=== PATIENT | male | born 1945 | race Caucasian/White ===

== ENCOUNTER → 2024-03-04 10:00 | Outpatient (REF) | payer MEDICARE, SELFPAY ==
[2024-03-04 11:32] LABS: Urine Albumin 3+ (Neg - Trace); Urine Bilirubin Negative (Negative); Urine Character Very Cloudy (Clear); Urine Color Yellow; Urine Glucose Negative (Negative); Urine Ketone Negative (Negative); Urine Leukocyte 2+ (Negative); Urine Nitrite Negative (Negative); Urine Occult Blood 3+ (Negative); Urine Urobilinogen Negative (Neg - 1+)
[2024-03-04 11:56] LABS: Urine White Cell >100 /HPF (0-5)
[2024-03-04 11:57] LABS: Urine Squamous Cell 0-2 /LPF (Few)
== END ==
LOC: HWLAB 10:00
PROVIDERS: ATTENDING PHYSICIAN Urology; FAMILY PHYSICIAN Family Medicine
DX: N39.0 Urinary tract infection, site not specified (principal)
CPT/HCPCS: 81003; 81015; 87077; 87086

== ENCOUNTER → 2024-04-02 07:58 | Outpatient (REF) | payer MEDICARE, SELFPAY ==
[2024-04-02 09:49] LABS: % Basophils 1.2 % (0-2); % Immature Granulocytes 0.3 % (0-0.5); % Lymphocytes 21.3 % (20.5-51.1); % Monocytes 10.8 % (1.7-9.3); % Neutrophils 59.4 % (42.2-75.2); Absolute Eosinophils 0.2 10^3/uL (0-0.7); Absolute Lymphocytes 0.7 10^3/uL (1.2-3.4); Absolute Monocytes 0.4 10^3/uL (0.1-0.6); Hematocrit 33.1 % (39.0-52.0); Hemoglobin 11.8 g/dL (13.0-18.0); Mean Corp Hgb Conc. 35.6 g/dL (33.0-37.0); Mean Corpuscular Hgb 33.6 pg (27.0-31.0); Mean Corpuscular Volume 94.3 fL (80.0-94.0); Mean Platelet Volume 9.7 fL (7.4-10.4); Nucleated Red Blood Cells % 0 % (-); Platelet Count 105 10^3/uL (130-400); Red Blood Cell Count 3.51 10^6/uL (4.70-6.10); Red Cell Dist. Width 13.7 % (11.5-14.5); White Blood Cell Count 3.4 10^3/uL (4.8-10.8)
[2024-04-02 11:28] LABS: ALT (SGPT) 19 U/L (0-50); AST (SGOT) 31 U/L (17-59); Albumin 4.2 g/dl (3.5-5.0); Alkaline Phosphatase 50 U/L (38-126); Blood Urea Nitrogen 23 mg/dl (9-20); Calcium 9.5 mg/dl (8.4-10.2); Carbon Dioxide 26 mmol/L (22-30); Chloride 106 mmol/L (98-107); Glucose 97 mg/dl (70-99); HDL Cholesterol 53 mg/dl; LDL Cholesterol, Calculated 66 mg/dl; Potassium 3.9 mmol/L (3.5-5.1); Sodium 139 mmol/L (135-145); Total Bilirubin 1.1 mg/dl (0.2-1.3); Total Cholesterol 135 mg/dl (50-199); Total Protein 6.5 g/dl (6.3-8.2); Triglyceride 80 mg/dl (10-149); Very Low Density Lipoprotein 16 mg/dl (0-30); eGFR > 60.00
== END ==
LOC: HWLAB 07:58
PROVIDERS: ATTENDING PHYSICIAN Family Medicine
DX: I10 Essential (primary) hypertension (principal); R06.83 Snoring; E78.5 Hyperlipidemia, unspecified; I47.10 Supraventricular tachycardia, unspecified; I35.1 Nonrheumatic aortic (valve) insufficiency; I77.810 Thoracic aortic ectasia; R79.89 Other specified abnormal findings of blood chemistry
CPT/HCPCS: 36415; 80053; 80061; 85025

== ENCOUNTER → 2024-04-22 09:44 | Outpatient (REF) | payer MEDICARE, SELFPAY | LOC: HWRAD 09:44 | PROVIDERS: ATTENDING PHYSICIAN Physician Assistant; FAMILY PHYSICIAN Family Medicine | DX: R33.9 Retention of urine, unspecified (principal); N40.1 Benign prostatic hyperplasia with lower urinary tract symptoms | CPT/HCPCS: 76775 ==

== ENCOUNTER → 2024-08-04 08:08 | Outpatient (REF) | payer MEDICARE, SELFPAY ==
[2024-08-04 09:40] LABS: % Basophils 0.9 % (0-2); % Eosinophils 3.4 % (0-6); % Immature Granulocytes 0.9 % (0-0.5); % Lymphocytes 16.2 % (20.5-51.1); % Monocytes 12.5 % (1.7-9.3); % Neutrophils 66.1 % (42.2-75.2); Absolute Eosinophils 0.1 10^3/uL (0-0.7); Absolute Lymphocytes 0.6 10^3/uL (1.2-3.4); Absolute Monocytes 0.4 10^3/uL (0.1-0.6); Absolute Neutrophils 2.3 10^3/uL (1.4-6.5); Hematocrit 34.8 % (39.0-52.0); Hemoglobin 12.9 g/dL (13.0-18.0); Mean Corp Hgb Conc. 37.1 g/dL (33.0-37.0); Mean Corpuscular Volume 91.8 fL (80.0-94.0); Mean Platelet Volume 9.3 fL (7.4-10.4); Nucleated Red Blood Cells % 0 % (-); Platelet Count 113 10^3/uL (130-400); Red Blood Cell Count 3.79 10^6/uL (4.70-6.10); White Blood Cell Count 3.5 10^3/uL (4.8-10.8)
[2024-08-04 10:02] LABS: ALT (SGPT) 22 U/L (0-50); AST (SGOT) 36 U/L (17-59); Albumin 4.6 g/dl (3.5-5.0); Alkaline Phosphatase 44 U/L (38-126); Blood Urea Nitrogen 25 mg/dl (9-20); Calcium 9.5 mg/dl (8.4-10.2); Carbon Dioxide 25 mmol/L (22-30); Chloride 104 mmol/L (98-107); Glucose 102 mg/dl (70-99); HDL Cholesterol 52 mg/dl; LDL Cholesterol, Calculated 81 mg/dl; Potassium 3.9 mmol/L (3.5-5.1); Sodium 141 mmol/L (135-145); Total Bilirubin 1.7 mg/dl (0.2-1.3); Total Cholesterol 160 mg/dl (50-199); Total Protein 7.1 g/dl (6.3-8.2); Triglyceride 139 mg/dl (10-149); Very Low Density Lipoprotein 27 mg/dl (0-30); eGFR 51.13
[2024-08-04 10:33] LABS: PSA, Total - Screen 0.67 ng/ml (0.0-4.0); TSH 0.06 uIU/ml (0.47-4.68)
== END ==
LOC: HWLAB 08:08
PROVIDERS: ATTENDING PHYSICIAN Family Medicine
DX: I10 Essential (primary) hypertension (principal); E78.00 Pure hypercholesterolemia, unspecified; R35.1 Nocturia; Z12.5 Encounter for screening for malignant neoplasm of prostate
CPT/HCPCS: 36415; 80053; 80061; 84443; 85025; G0103

== ENCOUNTER 2024-08-11 00:30 | Inpatient (IN) | payer MEDICARE, SELFPAY ==
[2024-08-10 23:06] LABS: Glucose - Point of Care 111 mg/dl (70-99)
[2024-08-10 23:07] VITALS: BP 155/85
--- NOTE | 2024-08-10 23:08 | ED.CVA ---
History of Present Illness
General
Chief Complaint: CVA/TIA Symptoms
Source: patient
Exam Limitations: none
Time Seen by Provider: 08/10/24 23:01
Nursing documentation reviewed up to this point in time: agreed with
Onset of Stroke Symptoms
Onset of symptoms known: Yes
Date of onset of symptoms: 08/10/24
Time of onset of symptoms: 22:15
History of Present Illness
History of Present Illness:
This is a 79-year-old gentleman who has history of hypertension, hyperlipidemia, history of central retinal vein occlusion of the left eye 2018 with chronic vision loss of left eye that has been stable and unchanged since then.
While getting ready for bed tonight around 20-15 he suddenly noticed weakness of his left arm as well as mild weakness of his left leg. No other associated symptoms, no fall, no dizziness, no headache. No history of similar episodes in the past.
Symptoms have been persistent. He was able to ambulate to the car and family has driven him to the hospital.
He takes no anticoagulants save for low-dose aspirin.
Prior to tonight he has been feeling well.
Significant family history of CVAs in his father, grandfather, uncles.
Patient reports remote history of dizziness/vertigo in the past.
He also has history of mild thrombocytopenia�platelet count generally runs from normal to low of 100,000.
No history of bleeding disorders. No recent falls.
Past History
Past History
ED Past Medical History: HTN (Borderline), Hypercholesterolemia and Other (Mild thrombocytopenia-no history of bleeding disorders)
ED Past Surgical History: Cholecystectomy, Orthopedic and Urological
Social History
Tobacco: Non-smoker
Alcohol: Occasional
Personal:
Living: with family
Employment: Retired
Family History
Family History: Other (CVA father, paternal grandfather)
Phy Exam
Physical Exam
Physical Exam:
GENERAL: 79-year-old gentleman appears his stated age, bright and alert, pleasant, easily communicative, appears in no acute distress.
EYE: pupils equal and reactive. Extraocular muscles intact, moderate vision loss left eye which patient reports is chronic and unchanged. He preferentially keeps his left eye closed�habitually. Anicteric. Eyes otherwise open equally. There is
no facial droop/no facial asymmetry.
NECK: Supple, nontender, no meningismus, no significant adenopathy.
ENT: posterior pharynx is clear, oral mucosa is moist. Tongue is midline. TM clear b/l, nares patent.
CARDIAC: Regular rate and rhythm. no murmur.
LUNGS: Clear breath sounds bilaterally, no acute respiratory distress, no wheezes/rales/rhonchi
ABDOMEN: Soft, nondistended, without focal tenderness, no r/g, no cvat. normoactive BS.
NEUROLOGICAL: Alert and oriented x3, very minimal drift of left upper extremity with mild dysmetria of left upper extremity, very minimal sensory deficit left upper arm. Initial NIH stroke scale of 4.
SKIN: Warm and dry, normal color, skin intact. No rash.
MUSCULOSKELETAL: No C/C/E. peripheral pulses are full and equal b/l. No palpable tenderness.
PSYCH: Normal and appropriate interaction.
Scores
NIH Stroke Score
Level of Consciousness: 0 - Alert
LOC Questions: 0-Answers both correctly
LOC Commands: 0-Performs both correctly
Best Horizontal Gaze: 0-Normal
Visual Knight: 1=Partial hemianopia
Facial Palsy: 0=Normal, symmetrical
Motor - Right Arm: 0=No drift 10 seconds
Motor - Left Arm: 1=Drift < 10 seconds
Motor - Right Le-No drift 5 seconds
Motor - Left Le-No drift 5 seconds
Limb Ataxia: 1-Present in one limb
Sensation: 1-Mild loss
Best Language: 0-No aphasia
Dysarthria: 0-Normal
Extinction and Inattention: 0-No abnormality
Total Score:: 4
Thrombolytic Contraindication
Inclusion and Exclusion criteria reviewed: Yes
IAT Contraindications: NIHSS < 6
Stroke Thrombolytic & IAT <6 hours
IAT <6 Hr Exclusion Criteria: NIHSS <6
Course
Orders/Labs/Results
Orders:
Orders
08/10/24 23:04
EKG [Electrocardiogram (*1)] Urgent
Reason for Study: Fatigue / Weakness
EKG- Treatment ONCE
08/10/24 23:05
Electrocardiogram (*1) Urgent
Reason for Study: Other
Other Reason for Exam: Possible Stroke
Bedside Glucose- Treatment ONCE
Cardiac Monitoring- Treatment ONCE
EKG- Treatment ONCE
IV Insert/Care/Rem.- Treatment PRN
Vital Signs As Directed
Frequency: Other
Weight As Directed
Frequency: Once
Comment: ZERO STRETCHER SCALE FOR ACCURATE WEIGHT
O2 Therapy [RESP] Urgent
Titrate/Wean O2 to maintain O2 sat greater than (%): 93
Special Instructions: MAINTAIN CONTINUOUS O2 SATS > OR = 93%
08/10/24 23:07
CT HEAD STROKE ALERT W/o Cont Urgent
Comment: ok to change per DR Meyer
Reason For Exam: L sided weakness
08/10/24 23:16
Complete Blood Count/With Diff Urgent
Comprehensive Metabolic Panel Urgent
PTT Urgent
Prothrombin Time Urgent
Troponin I Urgent
08/10/24 23:34
Tenecteplase [Tnkase] 21 mg Syringe [Syringe Non-Pump] 0 ml IV NOW
Provider explained risk/benefits to patient &/or caregiver?: Yes
Blood pressure: 155/85
Abnormal Lab Results
08/10/24 08/10/24
23:04 23:16
RBC 3.75 L 10^6/uL
(4.70-6.10)
Hgb 12.4 L g/dL
(13.0-18.0)
Hct 35.1 L %
(39.0-52.0)
MCH 33.1 H pg
(27.0-31.0)
Absolute Lymphs (auto) 1.1 L 10^3/uL
(1.2-3.4)
Lymphocytes % 19.3 L %
(20.5-51.1)
Monocytes % 9.7 H %
(1.7-9.3)
PT 14.9 H Sec
(11.4-14.6)
BUN 29 H mg/dl
(9-20)
Creatinine 2.0 H mg/dL
(0.7-1.3)
Glucose 120 H mg/dl
(70-99)
POC Glucose 111 H mg/dl
(70-99)
08/10/24 23:16
08/10/24 23:16
Vital Signs
Initial and Last Documented VS:
Initial Vital Signs
Pulse Pulse Ox
62 97
08/10/24 23:06 08/10/24 23:06
Last Documented Vital Signs
Temp Pulse Resp BP Pulse Ox
98.1 F 61 16 143/71 98
08/10/24 23:20 08/11/24 00:00 08/11/24 00:00 08/11/24 00:00 08/11/24 00:00
MDM/Problems Addressed
Differential Diagnosis Includes:
Concern for acute stroke. Onset of symptoms from 22:15. Initial NIH stroke scale of 4.
Patient is potential candidate for TNK/thrombolytics. At this point not candidate for IAT due to to NIH stroke scale less than 6.
Stroke alert initiated at time of initial bedside evaluation.
Case discussed with neurology.
Awaiting stat CT of the head results.
Chronic conditions affecting care: HTN and Other (Hyperlipidemia; Thrombocytopenia)
*Radiology
Radiology exam reviewed: radiology read reviewed
*Pulse Oximetry
Patient hypoxic: no
*EKG
Interpreted by ED Provider?: Yes
Interpretation: normal
Comparison EKG: no comparison EKG present
Rate: normal
Rhythm: sinus
[place]: normal axis
Interval: normal interval
QRS Pattern: normal QRS
Ischemia: no ischemia
*Towel Weaver Interpretation
Rate: normal
Interpretation: normal
Rhythm: sinus
*Critical Care Note
Total Time (30-74mins, 75-104mins- exclusive of procedures): 30
comment:
Critical care statement: A total of 30 minutes of critical care time was provided for this patient. This includes management of unstable vital signs, evaluation of the patient at bedside, reviewing the patient's pertinent medical records, discussion
with consultants, review of old EKGs and review of pertinent medical records. This time with separate from time utilized to perform the aforementioned documented procedures
Update Note
Update Note:
08/10/2024 2334 PM
CAT scan shows no acute bleeding. There are a few tiny lacunar infarct on the right side, age-indeterminate. There is also note of moderate atrophy, concern for old subdural hematoma/hygromas but overall very similar in appearance from previous
MRI of the brain 2012 which is more consistent with moderate atrophy.
Case discussed with neurology. Okay for TNK.
Benefits and risk discussed with patient, including risk of intracranial bleeding. He is agreeable with IV thrombolytics.
ED Attending Note
-
Portions of this chart may have been created with voice recognition software.� Occasional wrong word or��sound alike� substitutions may have occurred due to the inherent limitations of voice recognition software.
Discharge Plan
Departure
Patient Disposition: Admit
Date of Disposition: 08/11/24
Time of Disposition: 00:13
Admit to: ICU
Admit to doctor: Daly
Presentation/result/management discussed w/ accepting MD/DO: Hospitalist
Discharge Problem:
acute ischemic CVA
Prescriptions:
No Action
atorvastatin 10 MG tablet
5 mg PO QPM
fluticasone propionate 1 SPRAY spray,suspension
1 spray intranasal DAILYPRN PRN (Reason: ALLERGIES)
latanoprost 0.005 % Drops
1 drp BOTH EYES HS
aspirin 81 mg Tablet,Delayed Release (Dr/Ec)
81 mg PO QPM
ciclopirox 8 % Solution
1 applic TOPICAL HS
lisinopril 5 mg Tablet
5 mg PO DAILY
Align 4 mg Capsule
4 mg PO DAILY
cholecalciferol (vitamin D3) [Vitamin D3] 50 mcg (2,000 unit) Capsule
50 mcg PO DAILY
silodosin 4 mg Capsule
4 mg PO QPM
coQ10 (ubiquinol) 100 mg Capsule
100 mg PO DAILY
[id number]-algal oil [Foltanx RF] 3 mg-35 mg-2 mg -90.314 mg Capsule
1 cap PO BID
sildenafil [Viagra] 100 mg Tablet
100 mg PO DAILY PRN (Reason: ed)
naproxen sodium [Aleve] 220 mg Tablet
220 mg PO [id number] PRN (Reason: mild pain)
diltiazem HCl 180 mg capsule,extended release 24hr
180 mg PO DAILY
Referrals:
Abdelrahman Burroughs DO [Family Provider] -
Interventions
Interventions:
*General Assessment Last Done: 08/10/24 23:27
*ED COVID-19 Vaccine History Last Done: 08/10/24 23:27
ED- Pulmonary Assessment Last Done: 08/10/24 23:28
ED- Neurological Assessment Last Done: 08/10/24 23:28
ED- Cardiac Assessment Last Done: 08/10/24 23:28
Discharge Date and Time
Print Language: POLISH
[2024-08-10 23:20] VITALS: BP 155/85; BMI 27.0
[2024-08-10 23:31] LABS: % Basophils 0.7 % (0-2); % Eosinophils 2.8 % (0-6); % Immature Granulocytes 0.5 % (0-0.5); % Lymphocytes 19.3 % (20.5-51.1); % Monocytes 9.7 % (1.7-9.3); Absolute Eosinophils 0.2 10^3/uL (0-0.7); Absolute Lymphocytes 1.1 10^3/uL (1.2-3.4); Absolute Monocytes 0.6 10^3/uL (0.1-0.6); Absolute Neutrophils 3.9 10^3/uL (1.4-6.5); Hematocrit 35.1 % (39.0-52.0); Hemoglobin 12.4 g/dL (13.0-18.0); Mean Corp Hgb Conc. 35.3 g/dL (33.0-37.0); Mean Corpuscular Hgb 33.1 pg (27.0-31.0); Mean Corpuscular Volume 93.6 fL (80.0-94.0); Mean Platelet Volume 9.5 fL (7.4-10.4); Nucleated Red Blood Cells % 0 % (-); Platelet Count 152 10^3/uL (130-400); Red Blood Cell Count 3.75 10^6/uL (4.70-6.10); Red Cell Dist. Width 13.2 % (11.5-14.5); White Blood Cell Count 5.8 10^3/uL (4.8-10.8)
[2024-08-10 23:32] LABS: INR 1.14; PT 14.9 Sec (11.4-14.6)
[2024-08-10 23:33] LABS: APTT 32.8 Sec (23.4-35.0)
[2024-08-10 23:37] LABS: ALT (SGPT) 21 U/L (0-50); AST (SGOT) 32 U/L (17-59); Albumin 4.6 g/dl (3.5-5.0); Alkaline Phosphatase 41 U/L (38-126); Blood Urea Nitrogen 29 mg/dl (9-20); Calcium 9.4 mg/dl (8.4-10.2); Carbon Dioxide 23 mmol/L (22-30); Chloride 107 mmol/L (98-107); Estimated Creatinine Clearance 31 ml/min; Glucose 120 mg/dl (70-99); Potassium 4.1 mmol/L (3.5-5.1); Sodium 142 mmol/L (135-145); eGFR 33.32
[2024-08-10] MEDS: TNKASE 4.2 MG IV (23:43)
[2024-08-10 23:45] VITALS: BP 141/74
[2024-08-10 23:46] VITALS: BP 141/74
[2024-08-11] VITALS (73 sets, daily range): BP systolic 119–169; BP diastolic 58–106; BMI 26.2
[2024-08-11] LABS: Troponin I < 0.012 ng/ml
--- NOTE | 2024-08-11 00:47 | HPS.HSE ---
Family Physician
-
Family Physician: Abdelrahman Burroughs
Chief Complaint
-
Left-sided weakness
History of Present Illness
This is a 79-year-old was past medical history significant for hypertension, paroxysmal supraventricular tachycardia, BPH status post surgery, prior history of a left central retinal vein occlusion who presents to the emergency department with acute
episode of left-sided weakness.
Patient reports being in usual state of health up until trying to go to bed at around 10:30 PM. He reported that his left hand felt heavy and was not able to grasp objects as he normally would. When he walks he also noticed some weakness in his
left leg. Family denies any facial asymmetry. They denied any slurred speech. He had no confusion. He denies specifically numbness or tingling. He had no recent palpitations or lightheadedness or dizziness. Patient denies prior TIA or CVA. He
has no known coronary artery disease. Patient reports that his symptoms are still present on arrival in the emergency department.
In the emergency department patient was afebrile with a temp of 90.1, blood pressure 142/71 pulse 61 satting 98% on room air. CT of the head was negative. ECG is normal sinus rhythm rate 64 troponin negative. CBC was unremarkable. Chemistries
notable for a creatinine of 2.0 which is elevated from 1.5 previously.
Stroke alert called, neurology aware and patient received TNK.
Medical History
Past Medical History
Past Medical History: Reports HTN and Hypercholesterolemia
Additional Past Medical History:
BPH s/p surgery
Past Surgical History: Reports Urological
Social History
Tobacco: Non-smoker
Alcohol: Occasional
Drug: None
Personal:
Living: With Family
Employment: Retired
Family History
Family History: Not pertinent
Allergies / Home Medications
Allergies reflects when Allergies were last updated in [facility].
Home Medications with original date entered in [facility]
Allergy/Medication List:
Allergies
Allergy/AdvReac Type Severity Reaction Status Date / Time
Penicillins Allergy Hives Verified 09/21/23 15:09
Home Medications
atorvastatin 10 mg tablet 5 mg PO QPM 08/23/20
fluticasone propionate 50 mcg/actuation nasal spray,suspension 1 spray intranasal DAILYPRN PRN ALLERGIES 08/23/20
Bifidobacterium infantis 4 mg capsule (Align) 4 mg PO DAILY 09/21/23
aspirin 81 mg tablet,delayed release 81 mg PO QPM 09/21/23
cholecalciferol (vitamin D3) 50 mcg (2,000 unit) capsule (Vitamin D3) 50 mcg PO DAILY 09/21/23
ciclopirox 8 % topical solution 1 applic topical HS tornails 09/21/23
coQ10 (ubiquinol) 100 mg capsule 100 mg PO DAILY 09/21/23
latanoprost 0.005 % eye drops 1 drp BOTH EYES HS 09/21/23
levomefolate Ca 3 mg-B6 35 mg-meB12 2 mg-algal oil 90.314 mg capsule (Foltanx RF) 1 cap PO BID 09/21/23
lisinopril 5 mg tablet 5 mg PO DAILY 09/21/23
naproxen sodium 220 mg tablet (Aleve) 220 mg PO [id number] PRN mild pain 09/21/23
sildenafil 100 mg tablet (Viagra) 100 mg PO DAILY PRN ed 09/21/23
silodosin 4 mg capsule 4 mg PO QPM 09/21/23
diltiazem HCl 180 mg capsule,extended release 24 hr 180 mg PO DAILY 08/10/24
Review of Systems
-
History Source: Patient
Constitutional: Reports No Symptoms
EENT: Reports No Symptoms
Respiratory: Reports No Symptoms
Cardiac: Reports No Symptoms
Abdomen/GI: Reports No Symptoms
: Reports No Symptoms
Musculoskeletal: Reports No Symptoms
Skin: Reports No Symptoms
Neurological: Reports No Symptoms
Endocrine: Reports No Symptoms
Hematologic/Lymphatic: Reports No Symptoms
Psych: Reports No Symptoms
Physical Exam
Vital Signs
Vital Signs
Temp Pulse Resp BP Pulse Ox
98.1 F 64 16 155/79 98
08/10/24 23:20 08/11/24 00:30 08/11/24 00:30 08/11/24 00:30 08/11/24 00:30
Physical Exam
General: Well Developed, Well Nourished, No Apparent Distress and Comfortable
HEENT: NormoCephalic, Anicteric, Moist mucous membranes and Atraumatic
Respiratory: Clear
Cardiac: S1/S2 and Regular Rhythm
GI: Soft, Non Tender, Non Distended and Normal Bowel Sounds
Genito-urinary: Deferred by me
Musculoskeletal: No Clubbing, No Cyanosis and No Edema
Skin: Warm
Neuro: AO x 3, Cranial Nerves Intact, No Sensory Deficits, DTR's Intact & Symmetrical and Other (strenght is 4.5 / 5 on left upper and lower extremity)
Hematologic/Lymphatic: No Lymphadenopathy
Psych: Calm
Laboratory Results
-
08/10/24 23:16
08/10/24 23:16
Laboratory Results
PT 14.9 Sec (11.4-14.6) H 08/10/24 23:16
INR 1.14 08/10/24 23:16
APTT 32.8 Sec (23.4-35.0) 08/10/24 23:16
Total Bilirubin 1.0 mg/dl (0.2-1.3) 08/10/24 23:16
AST 32 U/L (17-59) 08/10/24 23:16
ALT 21 U/L (0-50) 08/10/24 23:16
Alkaline Phosphatase 41 U/L (38-126) 08/10/24 23:16
Troponin I < 0.012 ng/ml 08/10/24 23:16
Data Reviewed
-
CT Scan: Report Reviewed by me
Lab Data: Labs Reviewed by me
Old Records: Reviewed
Impression/Plan
-
IMPRESSION:
79-year-old male with past medical history of hypertension, BPH, supraventricular tachycardia without atrial fibrillation or flutter who presents to the emergency department with left-sided weakness consistent with a right MCA syndrome.
Hemodynamically stable and in no acute distress. Currently NIHSS was 4 with 4 out of 5 weakness in the upper and lower extremities. Sensation is intact. Speech is normal. No facial asymmetry. Risk factors are age, hypertension and possibly
history of these SVT. Status post TNK.
PLAN:
CVA s/p TNK
- admit to ICU
- npo pending swallow eval
- holding asa and AC
- hold bp meds, BP protocol with prn labetolol
- neurochecks q 4
- echo, mri/mra head and neck in am
- cardiovascualar testing, tsh, esr
- neurology consult
HTN
- holding lisinopril for now
SVT
- holding cardizem, telemetry monitoring
Code status - Full Code
--- NOTE | 2024-08-11 01:43 | PTCARENOTE ---
Pt arrived from ED via stretcher, significant other at bedside. Bedside NIH completed = 2, LUE ataxia and weakness. L eye with prior visual changes, per pt it is unchanged. R forearm PIV intact/patent, small amount of bleeding at insertion site.
[2024-08-11 04:37] LABS: Hematocrit 32.1 % (39.0-52.0); Hemoglobin 11.2 g/dL (13.0-18.0); Mean Corp Hgb Conc. 34.9 g/dL (33.0-37.0); Mean Corpuscular Hgb 32.7 pg (27.0-31.0); Mean Corpuscular Volume 93.6 fL (80.0-94.0); Mean Platelet Volume 9.5 fL (7.4-10.4); Platelet Count 134 10^3/uL (130-400); Red Blood Cell Count 3.43 10^6/uL (4.70-6.10); Red Cell Dist. Width 13.1 % (11.5-14.5); White Blood Cell Count 5.1 10^3/uL (4.8-10.8)
[2024-08-11 04:39] LABS: INR 1.14; PT 14.9 Sec (11.4-14.6)
[2024-08-11 04:40] LABS: APTT 33.7 Sec (23.4-35.0)
[2024-08-11 04:43] LABS: Erythrocyte Sed Rate 16 mm/hour (0-20); VerifyNow Aspirin 599 ARU
--- NOTE | 2024-08-11 04:59 | PTCARENOTE ---
Pt now with NIH = 1. Slight LUE weakness, ataxia improved. remains at bedside. AM labs collected and pending. Safe environment maintained, call rosa within reach.
[2024-08-11 05:02] LABS: Blood Urea Nitrogen 31 mg/dl (9-20); Calcium 8.9 mg/dl (8.4-10.2); Carbon Dioxide 23 mmol/L (22-30); Chloride 109 mmol/L (98-107); Estimated Creatinine Clearance 36 ml/min; Glucose 112 mg/dl (70-99); HDL Cholesterol 45 mg/dl; LDL Cholesterol, Calculated 52 mg/dl; Potassium 3.9 mmol/L (3.5-5.1); Sodium 142 mmol/L (135-145); Total Cholesterol 130 mg/dl (50-199); Triglyceride 166 mg/dl (10-149); Very Low Density Lipoprotein 33 mg/dl (0-30)
--- NOTE | 2024-08-11 06:55 | PTCARENOTE ---
Pt unable to void, bladder scan at approx 03:00 = 253ml, pt denied urge to void however attempted unsuccessfully in urinal. Approx 06:15, pt expressed need to void, bladder scan = 765ml. Pt attempted to void in urinal, again unsuccessful. Awaiting
order for straight cath.
--- NOTE | 2024-08-11 07:07 | CON.INTV ---
Consultation
Consultation Request
Date/Time Consultation Requested: 08/11/24
Date/Time Consultation Performed: 08/11/24
Performing Provider: Sandra
Reason for Consultation: CVA
Medical History
-
History of Present Illness:
Patient is a 79-year-old M with history of hypertension, paroxysmal supraventricular tachycardia, BPH status post surgery, presenting to ER for acute onset left-sided weakness. Patient reports being in usual state of health up until trying to go
to bed at around 10:30 PM, then noted LUE heaviness and inability to use hand/grasp. He had also noticed LLE weakness, but otherwise denies slurred speech, confusion, HAs.
In the emergency department patient was afebrile with a temp of 90.1, blood pressure 142/71 pulse 61 satting 98% on room air. CT of the head was negative. ECG is normal sinus rhythm rate 64 troponin negative. CBC was unremarkable. Chemistries
notable for a creatinine of 2.0 which is elevated from 1.5 previously. NIH scale noted as 4. Stroke alert called, patient received TNK. Admitted to ICU post treatment.
Past Medical History
Past Medical History: Other (see list below)
Social History
Tobacco: Non-smoker
Alcohol: None
Drug: None
Family History
Family History: Reviewed & Not Pertinent
Allergies / Home Medications
Allergies
Allergy/AdvReac Type Severity Reaction Status Date / Time
Penicillins Allergy Hives Verified 09/21/23 15:09
Home Medications
�Medication �Instructions �Recorded �Confirmed �Last Taken �Type
atorvastatin 10 mg tablet 5 mg PO QPM 08/23/20 08/10/24 08/10/24 History
fluticasone propionate 50 1 spray intranasal DAILYPRN PRN 08/23/20 08/10/24 09/21/23 History
mcg/actuation nasal ALLERGIES
spray,suspension
Bifidobacterium infantis 4 mg 4 mg PO DAILY 09/21/23 08/10/24 08/10/24 History
capsule (Align)
aspirin 81 mg tablet,delayed 81 mg PO QPM 09/21/23 08/10/24 08/10/24 History
release
cholecalciferol (vitamin D3) 50 50 mcg PO DAILY 09/21/23 08/10/24 08/10/24 History
mcg (2,000 unit) capsule (Vitamin
D3)
ciclopirox 8 % topical solution 1 applic topical HS tornails 09/21/23 08/10/24 09/20/23 History
coQ10 (ubiquinol) 100 mg capsule 100 mg PO DAILY 09/21/23 08/10/24 08/10/24 History
latanoprost 0.005 % eye drops 1 drp BOTH EYES HS 09/21/23 08/10/24 08/10/24 History
levomefolate Ca 3 mg-B6 35 1 cap PO BID 09/21/23 08/10/24 08/10/24 History
mg-meB12 2 mg-algal oil 90.314 mg
capsule (Foltanx RF)
lisinopril 5 mg tablet 5 mg PO DAILY 09/21/23 08/10/24 08/10/24 History
naproxen sodium 220 mg tablet 220 mg PO [id number] PRN mild pain 09/21/23 08/10/24 09/19/23 History
(Aleve)
sildenafil 100 mg tablet (Viagra) 100 mg PO DAILY PRN ed 09/21/23 08/10/24 Unknown History
silodosin 4 mg capsule 4 mg PO QPM 09/21/23 08/10/24 08/10/24 History
diltiazem HCl 180 mg 180 mg PO DAILY 08/10/24 08/10/24 08/10/24 History
capsule,extended release 24 hr
Review of Systems
-
History Source: Patient
All other systems: Negative unless noted
Vitals / Labs / Diagnostic Testing
Vital Signs
Temp Pulse Resp BP Pulse Ox
98.2 F 64 18 151/73 98
08/11/24 03:31 08/11/24 06:45 08/11/24 06:45 08/11/24 06:45 08/11/24 06:45
Lab Data
08/11/24 04:07
08/11/24 04:07
Laboratory Results
08/10/24 08/11/24
23:16 04:07
PT 14.9 H 14.9 H
INR 1.14 1.14
APTT 32.8 33.7
Diagnostic Testing:
Physical Exam
-
HEENT: Normocephalic, Anicteric and Moist Mucous Membranes
Cardiovascular: S1/S2 and Regular Rhythm
Respiratory: Clear and Non-Labored Respirations
GI: Soft, Non Distended and Non Tender
Neurology: Awake, Alert, Oriented and No Motor Deficits
Skin: Warm, Dry and Good Color
General: Comfortable and Other (NAD)
Assessment
-
Patient is a 79-year-old M with history of hypertension, paroxysmal supraventricular tachycardia, BPH status post surgery, presenting to ER for acute onset left-sided weakness. Patient reports being in usual state of health up until trying to go
to bed at around 10:30 PM, then noted LUE heaviness and inability to use hand/grasp. He had also noticed LLE weakness, but otherwise denies slurred speech, confusion, HAs. CT of the head was negative. NIH scale noted as 4. Stroke alert called,
patient received TNK. Admitted to ICU post treatment.
Acute CVA s/p TNK 08/11/24
L sided weakness
MARITZA, creat 2.0 (BL 1.2-1.4)
Conditions present [employer] MA[employer]
adm Acute cholestatic hepatitis with acute pancreatitis s/p ERCP/ Laparoscopic cholecystectomy 07/28/2010
HTN
Dyslipidemia
Carotid atherosclerosis
Chronic thrombocytopenia/Leukocytopenia
Tear medial meniscus, left knee s/p Arthroscopic partial medial meniscectomy 11/13/11
Gilbert's disease
Allergies, seasonal
Erectile dysfunction
Bilateral sensorineural hearing loss/Meniere's disease
Cervical degenerative disk disease
Carpal tunnel syndrome s/p R wrist Rothmann 06/06/20
Diverticulosis
Central retinal vein occlusion left
Major depressive disorder
Right ankle surgery (1967)
Vasectomy
Right knee arthroscopy (1994)
BPH s/p Aquablation of prostate 06/08/23
Plan
S/p TNK for CVA
Observe overnight following administration, careful watch for signs of bleeding
Follow CBC, neurovascular checks
ASA/Plavix started
Repeat MRI in AM
Prior cardiac history includes HTN, HLD
Resume home meds
Carotid disease also noted in past, await formal H&N read
No prior h/o lung disease, does snore- feels he may have sleep apnea
Recommend outpt sleep study, will arrange FU
Aspiration precautions
CXR reviewed-no acute process, repeat imaging as needed
Speech eval
Restart diet per protocol
GI ppx not indicated if starting diet early
Creat at baseline, follow UO
Daily weights
No signs/symptoms suspicious for infectious etiology at this time.
Will observe off antibiotics for now.
CBC stable
DVT ppx held, SCDs
If doing well post MRI, can transfer to floors.
Diagnostic Data
Chest X-Ray: 08/11/24- No active disease.
04/19/22- No active disease.
CT Scan: HEAD 08/11/[id number] lacunar infarcts in the right thalamus and right zelaya radiata white matter, no acute intracranial hemorrhage mass effect or midline shift. Moderate global volume loss significantly progressed compared to
prior MRI
AP 12/28/20- Small bilateral renal cysts. Enlarged prostate gland extending into the base of the bladder. The bladder wall is diffusely trabeculated with a large diverticulum arising from the anterior and superior aspect of the bladder. Stable
hemangioma within the anterior liver. Stable small cyst within the superior right lobe of the liver. Splenomegaly, similar to MRI of the abdomen from July 26, 2010. Colonic diverticula with no CT evidence for diverticulitis.
Echo: 09/19/23- Normal left ventricular size, wall thickness and systolic function. No regional wall motion abnormalities are seen. LV ejection fraction is 55-60% by Lemus's method of discs. Asymmetric septal hypertrophy. Normal diastolic
function. Normal right ventricular size and function. Trileaflet aortic valve with mild aortic regurgitation and no significant stenosis. Estimated pulmonary artery pressure of 24 mmHg. Assuming a right atrial pressure of 3 mmHg. Mildly dilated
ascending aorta, 4.2 cm. No prior for comparison.
PFT's:
Reports and relevant images were personally reviewed.
-----
Critical care time 55 mins -- this includes review of history, physical exam, medications, hemodynamic/ventilator parameters, laboratory data, imaging and discussion with house staff, pharmacy, respiratory therapy, bi technical lead, and nursing.
--- NOTE | 2024-08-11 08:49 | CON.NEURO ---
Neuro Assessment/Plan
Assessment
Acute onset left arm and leg weakness
Most likely secondary to acute ischemic stroke. Differential diagnosis includes cervical myelopathy although unlikely.
Patient received tenecteplase as therapy. Patient was not a candidate for intra-arterial thrombectomy due to NIH stroke scale less than 6
Plan
Based on the patient's P2Y12 assay suggesting lack of aspirin efficacy, would start the patient on clopidogrel as a replacement therapy to the patient's outpatient aspirin 24 hours after tenecteplase was provided.
Continue patient's usual atorvastatin based on LDL less than 70
Medical educational materials to be provided
Goal of normotension 24 hours after onset of symptoms
Goal of normoglycemia
We will follow MRI of brain results
DVT prophylaxis
Will follow pending results.
Consultation
Order
Date of Consultation: 08/11/24
Requesting Provider: Hospitalists
Reason for Consult: Left-sided weakness
Subjective/Objective
Subjective Data
Date of Service: August 11, 2024
Right-handed
Patient reports being in usual state of health up until around 21:30 hours, noticed his left hand suddenly felt heavy followed by weakness in his left leg.
No prior events. Developed pins-needles in his left lower extremity subsequently after an unclear number of hours. No other symptoms. Resolution of symptoms has not taken place, improved in both his leg and hand. No involvement on the right-side.
Left leg cramping took place two days in a row prior to hospital presentation which spontaneously resolved.
Objective Data
Vital Signs
Temp Pulse Resp BP Pulse Ox
36.5 C 64 14 146/77 98
08/11/24 08:00 08/11/24 07:47 08/11/24 07:47 08/11/24 07:47 08/11/24 08:00
Lab Results
08/11/24 04:07
08/11/24 04:07
PT 14.9 Sec (11.4-14.6) H 08/11/24 04:07
INR 1.14 08/11/24 04:07
APTT 33.7 Sec (23.4-35.0) 08/11/24 04:07
Sodium 142 mmol/L (135-145) 08/11/24 04:07
Potassium 3.9 mmol/L (3.5-5.1) 08/11/24 04:07
BUN 31 mg/dl (9-20) H 08/11/24 04:07
Glucose 112 mg/dl (70-99) H 08/11/24 04:07
Calcium 8.9 mg/dl (8.4-10.2) 08/11/24 04:07
LDL Cholesterol, Calc 52 mg/dl 08/11/24 04:07
Patient Allergies
Penicillins Allergy (Verified 09/21/23 15:09)
Hives
CVA Assessment
Onset of Stroke Symptoms
Onset of symptoms known: Yes
Date of onset of symptoms: 08/10/24
Time of onset of symptoms: 21:30
Time pt last seen normal is known: Yes
Date last time pt seen normal: 08/10/24
Time last time pt seen normal: 21:30
NIH Stroke Score
Level of Consciousness: 0 - Alert
LOC Questions: 0-Answers both correctly
LOC Commands: 0-Performs both correctly
Best Horizontal Gaze: 0-Normal
Visual Knight: 0=Normal, no visual loss
Facial Palsy: 0=Normal, symmetrical
Motor - Right Arm: 0=No drift 10 seconds
Motor - Left Arm: 1=Drift < 10 seconds
Motor - Right Le-No drift 5 seconds
Motor - Left Le-No drift 5 seconds
Limb Ataxia: 0-Absent
Sensation: 0-Normal
Best Language: 0-No aphasia
Dysarthria: 0-Normal
Extinction and Inattention: 0-No abnormality
Total Score:: 1
Tenecteplase Contraindications
Inclusion and Exclusion criteria reviewed: Yes
IAT Contraindications: NIHSS < 6
Review of Systems
-
History Source: Patient
All other systems: Reviewed and negative
EENT: Negative Swallowing Difficulty
Respiratory: Negative Trouble Breathing
Cardiac: Negative Chest Pain
Abdomen/GI: Negative Incontinence of Stool
Genitourinary: Incontinence
Musculoskeletal: Neck Pain; Negative Back Pain
Neuro: Negative Dizzy or Headache
Physical Exam
-
General: No Apparent Distress and Appears Stated Age
Eyes: OU Absent Papilledema, Round OU, [place] Conjunctivae and No Ptosis
HEENT: Anicteric and Moist Mucous Membranes
Neck: Full Range of Motion
Respiratory: No Dyspnea
Cardiac: No JVD
GI: Non-distended
Skin: Unremarkable
Extremities: No Clubbing, No Cyanosis and No Edema
Psych: Negative Intact Judgement/Insight
Extended Neurological Exam
Mood & Affect: Mood Unremarkable and Affect Unremarkable
Attention Span & Concentration: Awake, Alert, Interactive and No Difficulty with 2 Step Request
Memory: Unremarkable
Tremor: Hand Tremor Absent and Head Tremor Absent
Speech: Quality Unremarkable and Quantity Unremarkable
Cranial Nerve II: Left Eye: Pupillary Reactivity Unremarkable, Pupillary Size Unremarkable and Visual Knight Intact
Cranial Nerve II: Right Eye: Pupillary Reactivity Unremarkable, Pupillary Size Unremarkable and Visual Knight Intact
Cranial Nerves III, IV, : Extraocular Movement: Extraocular Movement Full in all Directions
Cranial Nerve VII: Facial Symmetry: Normal Facial Symmetry
Cranial Nerve VIII: Hearing: Unremarkable Hearing to Normal Conversational Volume
Cranial Nerves IX, X: Palate Movement: Palate Elevation Symmetric
Cranial Nerve XI: Shoulder Shrug: Unremarkable
Cranial Nerve XII: Tongue Protusion: Midline
Muscle Strength, Overall: Reduced (Left hand 5- out of 5) and Otherwise Intact
Muscle Bulk & Tone: Bulk Unremarkable and Tone Unremarkable
Deep Tendon Reflexes: Unremarkable Throughout
Touch Sensation: Unremarkable
Coordination: Ivrbmp-bzkh-vouopc Testing Unremarkable and Jzvf-Hlhm-Aqjm movements intact bilaterally
Babinski Sign: Absent Bilaterally
Data Reviewed
-
CT-A: Report Reviewed
CT Head: Report Reviewed
Labs: Report Reviewed
Lipid Profile: Report Reviewed
Reviewed with: Physician, Nurse, Patient and Family
Old Records: Summarized
Medications
-
Active Medications
Generic Name Dose Route Start Last Admin
Trade Name Freq PRN Reason Stop Dose Admin
Acetaminophen 650 mg 08/11/24 00:51
Acetaminophen 325 Mg Tablet PO 09/08/24 00:50
Q4HPRN PRN
CASE, mild pain, or temp >100.4F
Hydromorphone HCl 0.25 mg 08/11/24 00:51
Hydromorphone 0.25 Mg/0.5 Ml Syringe IV 08/25/24 00:50
Q4HPRN PRN
severe pain
Labetalol HCl 10 mg 08/11/24 00:51
Labetalol Hcl 5 Mg/1 Ml (20 Mg/4 Ml) Injection IV 09/08/24 00:50
Q6HPRN PRN
BP > 180/105 mmHg
Ondansetron HCl 4 mg 08/11/24 00:51
Ondansetron 4 Mg/2 Ml Vial IV 09/08/24 00:50
Q6HPRN PRN
NAUSEA/VOMITING
Sodium Chloride 0 flush 08/11/24 01:00
Sodium Chloride 0.9% (Flush) Syringe IV 09/08/24 00:59
PER PROTOCOL DENZEL
Home Medications
�Medication �Instructions �Recorded
atorvastatin 10 mg tablet 5 mg PO QPM 08/23/20
fluticasone propionate 50 1 spray intranasal DAILYPRN PRN 08/23/20
mcg/actuation nasal ALLERGIES
spray,suspension
Bifidobacterium infantis 4 mg 4 mg PO DAILY 09/21/23
capsule (Align)
aspirin 81 mg tablet,delayed 81 mg PO QPM 09/21/23
release
cholecalciferol (vitamin D3) 50 50 mcg PO DAILY 09/21/23
mcg (2,000 unit) capsule (Vitamin
D3)
ciclopirox 8 % topical solution 1 applic topical HS tornails 09/21/23
coQ10 (ubiquinol) 100 mg capsule 100 mg PO DAILY 09/21/23
latanoprost 0.005 % eye drops 1 drp BOTH EYES HS 09/21/23
levomefolate Ca 3 mg-B6 35 1 cap PO BID 09/21/23
mg-meB12 2 mg-algal oil 90.314 mg
capsule (Foltanx RF)
lisinopril 5 mg tablet 5 mg PO DAILY 09/21/23
naproxen sodium 220 mg tablet 220 mg PO [id number] PRN mild pain 09/21/23
(Aleve)
sildenafil 100 mg tablet (Viagra) 100 mg PO DAILY PRN ed 09/21/23
silodosin 4 mg capsule 4 mg PO QPM 09/21/23
diltiazem HCl 180 mg 180 mg PO DAILY 08/10/24
capsule,extended release 24 hr
Past History
Past History
ED Past Medical History: HTN (Borderline), Hypercholesterolemia, Psychiatric (major depression), Other (Mild thrombocytopenia-no history of bleeding disorders, BPH, central retinal vein occlusion on left, Meniere's disease), Other (hemorrhoids,
carpal tunnel syndrome, bilateral sensorineural loss, erectile dysfunction, pancreatitis) and Other (COVID-19 2021, Gilbert's disease)
ED Past Surgical History: Cholecystectomy, Orthopedic and Urological
Social History
Tobacco: Non-smoker
Alcohol: Occasional
Personal:
Living: with family
Employment: Retired
Family History
Family History: Other (CVA father, paternal grandfather)
[2024-08-11 09:11] LABS: Glycohemoglobin (HgbA1c) 4.9 % (4.0-5.6)
--- NOTE | 2024-08-11 10:05 | PTOTSP ---
Dysphagia Evaluation
Patient has risk factors for dysphagia (i.e., age indeterminate right thalamic, zelaya radiata stroke) and reported signs concerning for esophageal dysphagia (i.e., stasis with bread relieved with liquid wash and wait time) but can continue an oral
diet with strategies below.
Motor speech 100% intelligible. No obvious aphasia observed with conversation.
Recommend:
1. Regular, Thin Liquids
2. Medications as best tolerated
3. Strategies: upright to 90 degrees, small single sips/bites, slow rate, alternate sips/bites, remain upright for at least 30 minutes after PO intake as a reflux precaution
4. Oral care 3x daily
5. Brief dysphagia f/u and cognitive linguistic screen as able/appropriate.
[2024-08-11] MEDS: ZESTRIL 5 MG PO (11:18)
[2024-08-11] MEDS: CARDIZEM 30 MG PO ×3 (11:19→22:16)
[2024-08-11 11:21] LABS: TSH Reflex To Free T4 0.02 uIU/ml (0.47-4.68)
--- NOTE | 2024-08-11 11:30 | CM ---
CM following re: discharge planning.
Discussed in Rounds, reviewed pt's chart, met with pt and pt's fiance at bedside.
PT is a 79 year old male, admitted with primary dx of CVA. Per Rounds meeting, MRI today, PT, OT, ST to evaluate, continue supportive care.
Pt reports he lives with fiance in a 2SH/townhouse, spouse 2 years ago. Emotional support offered and provided. Pt reports he has 2 supportive children, daughter has POA. Pt described himself as independent in all areas SPARE HAND, has a cane
and a walker and does not use them. Pt expressed his desire to return back home at discharge with recommended services.
PT, OT, ST will evaluate the pt to determine a level of care at discharge.
PCP: Abdelrahman Burroughs
Pharmacy: [facility]
d/c plan: home with most likely VN services vs outpatient therapy. Awaiting for PT/OT/ST evaluations and recommendations.
CM will follow with discharge plan updates as hospitalization progresses
[2024-08-11 11:52] LABS: Free T4 1.03 ng/dl (0.78-2.19)
--- NOTE | 2024-08-11 12:00 | PTCARENOTE ---
Neuro check provided per protocol. Systems reviewed. Pt assisted to the BR x1, left sided weakness.
--- NOTE | 2024-08-11 16:00 | PTCARENOTE ---
Neuro checks provided per protocol, left-sided weakness improving. Systems reviewed. Safe environment maintained, call rosa in reach.
--- NOTE | 2024-08-11 16:21 | W.PN.HOSP.TC ---
Today's Communication/Plan
-
f/u MRI report
f/u BMP
BP control
Assessment / Plan
Assessment / Plan
1. Left-sided CVA
Status post TNK
-Patient had left upper and some lower extremity weakness yesterday
-Patient was provided dose of TNK in ER based on evaluation
-CT head was negative for any hemorrhagic CVA
-Follow-up MRI brain and MRA head and neck is pending
-Patient to be maintained on aspirin/Plavix, increased dose of statin to 40 mg daily
-PT/OT/ST evaluation
-Neurology following and help appreciated
2. Essential hypertension -uncontrolled
-Resume back patient home dose of lisinopril
-Patient diltiazem dose decreased to 90 mg in divided in 30mg TID dosing due to HR 60-70
-Hydralazine PRN for SBP > 160
3. History of SVT
-Continue diltiazem at lower dose with slower heart rate
-Will increase to full dose of 180 mg extended release tomorrow if patient able to tolerate current dose without any problems
4, MARITZA on presumed CKD
-Creatinine elevated to 2 at admission, trending down 1.7 today
-provided small dose ANDREAS in morning already ,will hold if cr not stable
-Bladder scan protocol ordered
-Encourage liquid intake
DVT PPX - scd
Full code
Total critical care time 36 mins . Total critical care time documented does not include time spent on separately billed procedures or the services of residents, students, nurses or physician assistants. I personally saw and examined the patient. I
have reviewed all diagnostic interpretations and treatment plans as written. I was present for the brown portions of any procedures performed and the inclusive time noted in any critical care statement. Critical care time includes patient management
by me, time spent at the patients bedside, time to review lab and imaging results, discussing patient care, documentation in the medical record, and time spent with the family or caregiver.
Anticipated Discharge: 24 - 48 hours
Subjective/Interval History
-
Date of Service: August 11, 2024
Left-sided weakness is improved
Patient remains hypertensive
Objective Data
-
Labs:
Laboratory Results
08/11/24
04:07
WBC 5.1
Hgb 11.2 L
Hct 32.1 L
Plt Count 134
PT 14.9 H
INR 1.14
APTT 33.7
Sodium 142
Potassium 3.9
Chloride 109 H
Carbon Dioxide 23
BUN 31 H
Creatinine 1.7 H
Glucose 112 H
Calcium 8.9
Vital Signs:
Vital Signs
Temp Pulse Resp BP Pulse Ox
98.1 F 65 14 146/72 98
08/11/24 12:05 08/11/24 16:08 08/11/24 15:00 08/11/24 16:08 08/11/24 08:00
I&O
08/10/24 08/11/24 08/12/24
06:59 06:59 06:59
Intake Total 400 / 400
Output Total 1075 / 1075
Balance -675 / -675
Review of Systems
-
Respiratory: Reports No Symptoms
Cardiac: Reports No Symptoms
Abdomen/GI: Reports No Symptoms
Physical Exam
-
General: No Apparent Distress and Comfortable
HEENT: Negative Oxygen
Respiratory: Clear to Auscultation
Cardiac: Regular Rhythm and S1/S2; Negative Murmur or Rub
GI: Soft, Nontender, Nondistended and Normal Bowel Sounds
Musculoskeletal: No Edema
Neuro: Awake, Alert, Oriented, Nonfocal/Grossly Intact and Other (Left upper motor power 4/5)
Psych: Calm
--- NOTE | 2024-08-11 16:48 | PTOTSP ---
ST Acute Care Evaluation
Pt currently presents with speech, receptive language, and expressive language skills that are WFL. Pt demonstrates a mild cognitive linguistic impairment with diverse deficits across executive functioning, language formulation, short term memory,
and naming. Further, more in-depth assessments are recommended at this time.
Recommendations:
- Continue MECHANICAL FACILITIES TECHNICIAN tx while admitted for mild cognitive linguistic impairment.
- Pt should continue with MECHANICAL FACILITIES TECHNICIAN tx upon d/c at OP level of care. MECHANICAL FACILITIES TECHNICIAN to consider administration of CLQT.
[2024-08-11] MEDS: LIPITOR 40 MG PO (18:06)
[2024-08-11] MEDS: OCEAN, SALINE MIST 2 SPRAYS NASAL (18:08)
--- NOTE | 2024-08-11 20:00 | PTCARENOTE ---
rec`d pt at 1900. AAOx3. NIH done with previous nurse. NIH 0. 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 Q1 hr neurochecks continued. SR to SB on monitor. clear lung sounds. RA. SCDs. +1lower extrem edema. 1 person assist to the bathroom. rt FA 20 flushed and
patent. call rosa in reach, safe environment maintained.
[2024-08-11] MEDS: XALATAN OPHTHALMIC SOLUTION 1 DROP BOTH EYES (22:00)
[2024-08-12] VITALS (25 sets, daily range): BP systolic 111–149; BP diastolic 61–128; PULSE 76; BMI 26.6
--- NOTE | 2024-08-12 00:56 | PTCARENOTE ---
pt reassessed. no changes in pt assessment. call rosa in reach.
--- NOTE | 2024-08-12 04:00 | PTCARENOTE ---
pt reassessed. no changes in pt assessment. call rosa in reach.
[2024-08-12 05:12] LABS: Hematocrit 34.5 % (39.0-52.0); Hemoglobin 12.3 g/dL (13.0-18.0); Mean Corp Hgb Conc. 35.7 g/dL (33.0-37.0); Mean Corpuscular Hgb 33.2 pg (27.0-31.0); Mean Platelet Volume 9.9 fL (7.4-10.4); Platelet Count 146 10^3/uL (130-400); Red Blood Cell Count 3.71 10^6/uL (4.70-6.10); Red Cell Dist. Width 13.2 % (11.5-14.5)
[2024-08-12 05:16] LABS: Blood Urea Nitrogen 26 mg/dl (9-20); Calcium 9.5 mg/dl (8.4-10.2); Carbon Dioxide 20 mmol/L (22-30); Chloride 107 mmol/L (98-107); Estimated Creatinine Clearance 52 ml/min; Glucose 103 mg/dl (70-99); Potassium 4.3 mmol/L (3.5-5.1); Sodium 142 mmol/L (135-145); eGFR > 60.00
--- NOTE | 2024-08-12 06:22 | DOWNTIME ---
There was a [employer] Cutter Helper Downtime on 08/12/2024 from 0100 to 08/12/2024 at 0350. Downtime documentation of patient's care, including medication administrations, has been reconciled in the electronic record per guidelines. Refer to the
patient's paper chart under the miscellaneous tab to see printed paper medication records and downtime forms.
--- NOTE | 2024-08-12 07:09 | W.PN.INTV ---
Today's Communication / Plan
Recommendations
Doing well post treatment, MRI reviewed
No new complaints, speech/PT follow up
Recommend outpatient sleep study testing, we will arrange
Transfer to tele, we will sign off upon transfer
Assessment
-
Patient is a 79-year-old M with history of hypertension, paroxysmal supraventricular tachycardia, BPH status post surgery, presenting to ER for acute onset left-sided weakness. Patient reports being in usual state of health up until trying to go
to bed at around 10:30 PM, then noted LUE heaviness and inability to use hand/grasp. He had also noticed LLE weakness, but otherwise denies slurred speech, confusion, HAs. CT of the head was negative. NIH scale noted as 4. Stroke alert called,
patient received TNK. Admitted to ICU post treatment.
Acute CVA s/p TNK 08/11/24
L sided weakness
MARITZA, creat 2.0 (BL 1.2-1.4)
Conditions present FISH FRYER
adm Acute cholestatic hepatitis with acute pancreatitis s/p ERCP/ Laparoscopic cholecystectomy 07/28/2010
HTN
Dyslipidemia
Carotid atherosclerosis
Chronic thrombocytopenia/Leukocytopenia
Tear medial meniscus, left knee s/p Arthroscopic partial medial meniscectomy 11/13/11
Gilbert's disease
Allergies, seasonal
Erectile dysfunction
Bilateral sensorineural hearing loss/Meniere's disease
Cervical degenerative disk disease
Carpal tunnel syndrome s/p R wrist Rothmann 06/06/20
Diverticulosis
Central retinal vein occlusion left
Major depressive disorder
Right ankle surgery (1967)
Vasectomy
Right knee arthroscopy (1994)
BPH s/p Aquablation of prostate 06/08/23
Plan
S/p TNK for CVA
Observe overnight following administration, careful watch for signs of bleeding
Follow CBC, neurovascular checks
ASA/Plavix started
Repeat MRI in AM--R frontoparietal lobe infarction
Prior cardiac history includes HTN, HLD
Resume home meds
Carotid disease also noted in past
No prior h/o lung disease, does snore- feels he may have sleep apnea
Recommend outpt sleep study, will arrange FU
Aspiration precautions
CXR reviewed-no acute process, repeat imaging as needed
Speech eval
Restart diet per protocol
GI ppx not indicated if starting diet early
Creat at baseline, follow UO
Daily weights
No signs/symptoms suspicious for infectious etiology at this time.
Will observe off antibiotics for now.
CBC stable
DVT ppx held, SCDs
If doing well post MRI, can transfer to floors.
Diagnostic Data
Chest X-Ray: 08/11/24- No active disease.
04/19/22- No active disease.
CT Scan: HEAD 08/11/[id number] lacunar infarcts in the right thalamus and right zelaya radiata white matter, no acute intracranial hemorrhage mass effect or midline shift. Moderate global volume loss significantly progressed compared to
prior MRI
AP 12/28/20- Small bilateral renal cysts. Enlarged prostate gland extending into the base of the bladder. The bladder wall is diffusely trabeculated with a large diverticulum arising from the anterior and superior aspect of the bladder. Stable
hemangioma within the anterior liver. Stable small cyst within the superior right lobe of the liver. Splenomegaly, similar to MRI of the abdomen from July 26, 2010. Colonic diverticula with no CT evidence for diverticulitis.
Brain MRI - Restricted diffusion within the right frontoparietal lobes consistent with acute infarction. Sequelae of moderate small vessel ischemic disease with prior lacunar infarctions within the right zelaya radiata and thalamus.
Echo: 09/19/23- Normal left ventricular size, wall thickness and systolic function. No regional wall motion abnormalities are seen. LV ejection fraction is 55-60% by Lemus's method of discs. Asymmetric septal hypertrophy. Normal diastolic
function. Normal right ventricular size and function. Trileaflet aortic valve with mild aortic regurgitation and no significant stenosis. Estimated pulmonary artery pressure of 24 mmHg. Assuming a right atrial pressure of 3 mmHg. Mildly dilated
ascending aorta, 4.2 cm. No prior for comparison.
PFT's:
Reports and relevant images were personally reviewed.
-----
Critical care time 35 mins -- this includes review of history, physical exam, medications, hemodynamic/ventilator parameters, laboratory data, imaging and discussion with house staff, pharmacy, respiratory therapy, auto bumper straightener, and nursing.
Subjective Dataa
Subjective Data
Date of Service:
Date of Service: August 12, 2024
Chief Complaint: Hide Paster Follow Up
Subjective:
Doing well, no acute events ON
Remains stable, no new complaints
Objective Data
Data Reviewed
Vital Signs / I&O / Oxygen:
Vital Signs
Temp Pulse Resp BP Pulse Ox
98.6 F 64 10 112/64 99
08/12/24 04:13 08/12/24 04:45 08/12/24 04:45 08/12/24 04:00 08/11/24 20:00
Intake and Output
08/11/24 08/12/24 08/13/24
06:59 06:59 06:59
Intake Total 800 / 800
Output Total 1475 / 1475
Balance -675 / -675
SaO2 99
Physical Exam
General: Comfortable and Other (NAD)
HEENT: Normocephalic, Anicteric and Moist Mucous Membranes
Cardiovascular: S1-S2 and Regular Rhythm
Respiratory: Clear and Non-Labored Respirations
GI: Soft, Non Distended and Non Tender
Neurology: Awake, Alert, Oriented and No Motor Deficits
Skin: Warm, Dry and Good Color
Labs/Micro/Reports
Lab Data
08/12/24 04:33
08/12/24 04:33
--- NOTE | 2024-08-12 07:50 | W.PN.NEURO.1 ---
Today's Communication / Plan
-
Continue newly initiated clopidogrel as a replacement therapy to the patient's outpatient aspirin
Continue patient's usual atorvastatin based on LDL less than 70
Neuro Assessment/Plan
Assessment
Acute onset left arm and leg weakness
Most likely secondary to acute ischemic stroke. Differential diagnosis includes cervical myelopathy although unlikely.
Patient received tenecteplase as therapy. Patient was not a candidate for intra-arterial thrombectomy due to NIH stroke scale less than 6
P2Y12 assay suggested lack of aspirin efficacy
Plan
Continue newly initiated clopidogrel as a replacement therapy to the patient's outpatient aspirin
Continue patient's usual atorvastatin based on LDL less than 70
Goal of normotension
Goal of normoglycemia
DVT prophylaxis
Will follow as needed
Subjective/Objective
Subjective Data
Date of Service: August 12, 2024
Objective Data
Vital Signs
Temp Pulse Resp BP Pulse Ox
36.5 C 64 10 112/64 99
08/12/24 07:29 08/12/24 04:45 08/12/24 04:45 08/12/24 04:00 08/11/24 20:00
Lab Results
08/12/24 04:33
08/12/24 04:33
PT 14.9 Sec (11.4-14.6) H 08/11/24 04:07
INR 1.14 08/11/24 04:07
APTT 33.7 Sec (23.4-35.0) 08/11/24 04:07
Sodium 142 mmol/L (135-145) 08/12/24 04:33
Potassium 4.3 mmol/L (3.5-5.1) 08/12/24 04:33
BUN 26 mg/dl (9-20) H 08/12/24 04:33
Glucose 103 mg/dl (70-99) H 08/12/24 04:33
Calcium 9.5 mg/dl (8.4-10.2) 08/12/24 04:33
LDL Cholesterol, Calc 52 mg/dl 08/11/24 04:07
Patient Allergies
Penicillins Allergy (Verified 09/21/23 15:09)
Hives
Data Reviewed
-
MRA Head: Report Reviewed
MRA Neck: Report Reviewed
Labs: Report Reviewed
Reviewed with: Physician
Past History
Past History
ED Past Medical History: HTN (Borderline), Hypercholesterolemia, Psychiatric (major depression), Other (Mild thrombocytopenia-no history of bleeding disorders, BPH, central retinal vein occlusion on left, Meniere's disease), Other (hemorrhoids,
carpal tunnel syndrome, bilateral sensorineural loss, erectile dysfunction, pancreatitis) and Other (COVID-2021, Gilbert's disease)
ED Past Surgical History: Cholecystectomy, Orthopedic and Urological
Social History
Tobacco: Non-smoker
Alcohol: Occasional
Personal:
Living: with family
Employment: Retired
Family History
Family History: Other (CVA father, paternal grandfather)
Medications
-
Medications:
Generic Name Dose Route Start Last Admin
Trade Name Freq PRN Reason Stop Dose Admin
Acetaminophen 650 mg 08/11/24 00:51
Acetaminophen 325 Mg Tablet PO 09/08/24 00:50
Q4HPRN PRN
CASE, mild pain, or temp >100.4F
Atorvastatin Calcium 40 mg 08/11/24 18:00 08/11/24 18:06
Atorvastatin (Lipitor) 40 Mg Tablet PO 09/08/24 17:59 40 mg
QPM DENZEL Administration
Clopidogrel Bisulfate 75 mg 08/12/24 08:00
Clopidogrel 75 Mg Tablet PO 09/01/24 08:01
DAILY DENZEL
Diltiazem HCl 30 mg 08/11/24 16:00 08/11/24 22:16
Diltiazem 30 Mg Regular Release Tablet PO 09/08/24 15:59 30 mg
TID DENZEL Administration
Hydralazine HCl 10 mg 08/11/24 09:50
Hydralazine 20 Mg/Ml Vial IV 09/08/24 09:49
Q4HPRN PRN
FOR SBP > 160 or DBP > 110
Hydromorphone HCl 0.25 mg 08/11/24 00:51
Hydromorphone 0.25 Mg/0.5 Ml Syringe IV 08/25/24 00:50
Q4HPRN PRN
severe pain
Lactobacillus/Bifidobacterium 1 cap 08/12/24 08:00
Lactobac/Bifidobac (Visbiome) PO 09/09/24 07:59
DAILY DENZEL
Latanoprost 1 drop 08/11/24 22:00 08/11/24 22:00
Latanoprost 0.005% (Ophthalmic Solution) 2.5 Ml Bottle BOTH EYES 09/08/24 21:59 1 drop
HS DENZEL Administration
Lisinopril 5 mg 08/11/24 10:00 08/11/24 11:18
Lisinopril 5 Mg Tablet PO 09/08/24 09:59 5 mg
DAILY DENZEL Administration
Ondansetron HCl 4 mg 08/11/24 00:51
Ondansetron 4 Mg/2 Ml Vial IV 09/08/24 00:50
Q6HPRN PRN
NAUSEA/VOMITING
Sodium Chloride 0 flush 08/11/24 01:00
Sodium Chloride 0.9% (Flush) Syringe IV 09/08/24 00:59
PER PROTOCOL DENZEL
Sodium Chloride 2 sprays 08/11/24 17:06 08/11/24 18:08
Sodium Chloride 0.65% Nasal [place] 45 Ml Bottle NASAL 09/08/24 17:05 2 sprays
Q4HPRN PRN Administration
nasal congestion
--- NOTE | 2024-08-12 08:30 | PTCARENOTE ---
Pt awake and resting quietly in bed. NIHSS completed w/ outgoing shift RN. Pt reports impaired vision in Lt eye and intermittent tingling to Lt LE is baseline for him.Physical assessment completed as documented. Pt remains on RA w/ POx 98%. OOB to
BR to void per pt report. Tolerating ordered diet. Pt reports missing personal 'magnifying glass' that he believes he left on his breakfast tray. Nutrition services called and notified of missing belonging- stated they will look for it. No
additional complaints from pt. Call shelley w/in pt reach and safe environment maintained.
[2024-08-12] MEDS: CARDIZEM 30 MG PO (08:46)
[2024-08-12] MEDS: VISBIOME 1 CAP PO (08:46)
[2024-08-12] MEDS: ZESTRIL 5 MG PO (08:46)
[2024-08-12] MEDS: PLAVIX 75 MG PO (08:46)
[2024-08-12] MEDS: ATIVAN 1 MG PO (08:47)
--- NOTE | 2024-08-12 09:45 | PTCARENOTE ---
Pt to MRI via transport stretcher w/o RN or monitoring engineer per order Dr Gregory. No changes or new complaints prior to transport. Pt ambulated w/ supervision from bed to stretcher in hallway.
--- NOTE | 2024-08-12 11:18 | CM ---
Patient seen at bedside in ICU. Patient plan is for discharge home with follow up sleep study per physician as an outpatient. Patient for transfer out of the unit. Patient pending PT/OT assessment but stated that he was hoping for discharge home. CM
will continue to follow for discharge planning needs.
Plan; home with VN vs SNF pending PT/OT assessment and recommendations.
--- NOTE | 2024-08-12 11:44 | PTOTSP ---
pt currently demonstrates ability to complete simple ADLs, functional transfers, ambulation with supervision to no assistance. pt up in room ad jim, able to make needs known. no overt deficits noted regarding cognition. will sign off.
--- NOTE | 2024-08-12 11:57 | PTCARENOTE ---
Pt sitting up in chair following visit from PT. No changes noted or complaints received. MRI/MRA results noted and TT to Dr Gregory w/ update.
--- NOTE | 2024-08-12 13:02 | W.PN.UPDATE ---
Update Note
Progress Note Update
Seen and evaluated with LESLEY Hawthorne. Full consultation to follow. Briefly 79-year-old male with past medical history including hypertension, hypercholesterolemia who presented to the hospital Saturday evening (today is Saturday) with acute episode of
left-sided weakness. Notes he was trying to go to bed and the left hand felt heavy and he was unable to grasp objects. He might of had some weakness in his left leg as well. Denies any prior antecedent such symptoms. No episodes of speech
dysarthria/expressive aphasia. No episodes of amaurosis. No prior history of strokes. Noted that he came to the hospital. Was given tPA. Patient notes symptoms resolved completely.
Cardiovascular risk factors as noted. Denies any history of tobacco use.
On exam/ He is awake and alert. Head is normocephalic and atraumatic. Eyes are anicteric. Neck is soft without jugular venous distention. 2+ carotid pulsations bilaterally. 2+ upper extremity radial pulses palpable bilaterally. Breathing is
unlabored. Neurologically moves all extremities well. May have the slightest bit of residual left upper extremity weakness compared to the right but relatively mild, but strength is overall I think 5 out of 5 on the left as well. Lower extremity
with the right 2+ DP, left 2+ PT pulses.
MRA reviewed. MRI brain report reviewed.
Plan/ Acute CVA R hemisphere, R carotid stenosis. MRI brain demonstrates a right frontoparietal acute infarction. MRA demonstrates a dissection/possible small pseudoaneurysm per report. To my interpretation I do not think this is
dissection/pseudoaneurysm but rather an ulcerated plaque. I find MRA to be inferior to CTA to better analyze the plaque, and the stenosis. Would favor additional imaging including carotid duplex and CT angiogram of the head and neck. Assuming
these confirm the suspected diagnosis of significant stenosis related to ulcerated plaque, my recommendation would be carotid revascularization. I discussed with the patient extensively my recommendations for carotid revascularization. Discussed
modalities of revascularization including carotid endarterectomy and TCAR. Discussed differences therein. Discussed both procedures. Generally given his anatomy, would favor right carotid endarterectomy. I discussed this with him. Discussed
procedure at length. Discussed anticipated recovery and outcomes. Discussed risks including but not limited to bleeding, infection, cardiac complication/MD, cranial nerve injury, stroke (in the symptomatic setting 2 to 3%). He understands all and
likely wishes to proceed. Will plan RIGHT carotid endarterectomy. We discussed timing as well. Given scheduling, and his desire to go home for the , we will plan that he continues dual antiplatelet therapy (discussed with
hospitalist resuming dual antiplatelet therapy, not just Plavix alone) and he will plan surgery next week in 1 week from today.
--- NOTE | 2024-08-12 13:10 | CON.VAS ---
Consultation
Consultation Request
Performing Provider: Thiago
Reason for Consultation: Carotid stenosis
Medical History
-
Chief Complaint: Left-sided weakness
History of Present Illness:
79-year-old male with past medical history including hypertension, hypercholesterolemia who presented to the hospital Saturday evening (today is Saturday) with acute episode of left-sided weakness. Notes he was trying to go to bed and the left hand
felt heavy and he was unable to grasp objects. He might of had some weakness in his left leg as well. Denies any prior antecedent such symptoms. No episodes of speech dysarthria/expressive aphasia. No episodes of amaurosis. No prior history of
strokes. Noted that he came to the hospital. Was given tPA. Patient notes symptoms resolved completely.
Cardiovascular risk factors as noted. Denies any history of tobacco use.
On exam/ He is awake and alert. Head is normocephalic and atraumatic. Eyes are anicteric. Neck is soft without jugular venous distention. 2+ carotid pulsations bilaterally. 2+ upper extremity radial pulses palpable bilaterally. Breathing is
unlabored. Neurologically moves all extremities well. May have the slightest bit of residual left upper extremity weakness compared to the right but relatively mild, but strength is overall I think 5 out of 5 on the left as well. Lower extremity
with the right 2+ DP, left 2+ PT pulses.
MRA reviewed. MRI brain report reviewed.
Past Medical History
Past Medical History: Other (BPH)
Past Surgical History: Urological
Social History
Tobacco: Non-Smoker
Alcohol: Occasional
Drug: None
Personal:
Living: With Family
Employment: Retired
Family History
Family History: Other (Father and paternal grandfather CVA at 73 years old)
Allergies / Home Medications
Allergy/AdvReac Type Severity Reaction Status Date / Time
Penicillins Allergy Hives Verified 09/21/23 15:09
�Medication �Instructions �Recorded �Confirmed �Type
atorvastatin 10 mg tablet 5 mg PO QPM High Cholesterol 08/23/20 08/10/24 History
fluticasone propionate 50 1 spray intranasal DAILYPRN PRN 08/23/20 08/10/24 History
mcg/actuation nasal ALLERGIES
spray,suspension
Bifidobacterium infantis 4 mg 4 mg PO DAILY Gastrointestinal 09/21/23 08/10/24 History
capsule (Align) Issue
aspirin 81 mg tablet,delayed 81 mg PO QPM Blood Clot 09/21/23 08/10/24 History
release Prevention/Tx
cholecalciferol (vitamin D3) 50 50 mcg PO DAILY Supplement 09/21/23 08/10/24 History
mcg (2,000 unit) capsule (Vitamin
D3)
ciclopirox 8 % topical solution 1 applic topical HS Infection 09/21/23 08/10/24 History
coQ10 (ubiquinol) 100 mg capsule 100 mg PO DAILY Supplement 09/21/23 08/10/24 History
latanoprost 0.005 % eye drops 1 drp BOTH EYES HS Eye Condition 09/21/23 08/10/24 History
levomefolate Ca 3 mg-B6 35 1 cap PO BID Supplement 09/21/23 08/10/24 History
mg-meB12 2 mg-algal oil 90.314 mg
capsule (Foltanx RF)
lisinopril 5 mg tablet 5 mg PO DAILY Blood Pressure 09/21/23 08/10/24 History
naproxen sodium 220 mg tablet 220 mg PO [id number] PRN mild pain 09/21/23 08/10/24 History
(Aleve)
sildenafil 100 mg tablet (Viagra) 100 mg PO DAILY PRN ed 09/21/23 08/10/24 History
silodosin 4 mg capsule 4 mg PO QPM Urinary Issue 09/21/23 08/10/24 History
diltiazem HCl 180 mg 180 mg PO DAILY Heart 08/10/24 08/10/24 History
capsule,extended release 24 hr Disease/Condition
Review of Systems
-
History Source: Patient
All other systems: Negative unless noted
Constitutional: Reports No Symptoms
EENT: Reports No Symptoms
Respiratory: Reports No Symptoms
Cardiac: Reports No Symptoms
Vascular: Denies Leg Pain / Claudication
Abdomen/GI: Reports No Symptoms
: Reports No Symptoms
Musculoskeletal: Reports No Symptoms
Skin: Reports No Symptoms
Neurological: Reports Weakness (Left upper extremity-resolved)
Endocrine: Reports No Symptoms
Physical Exam
Vital Signs
Temp Pulse Resp BP Pulse Ox
97.6 F 70 12 149/82 98
08/12/24 11:55 08/12/24 09:45 08/12/24 08:15 08/12/24 08:46 08/12/24 08:00
Lab Results
08/12/24 04:33
08/12/24 04:33
Troponin I < 0.012 ng/ml 08/10/24 23:16
Physical Exam
General: No Apparent Distress
HEENT: Normocephalic and Atraumatic
Respiratory: Non Labored Respirations
Cardiac: Negative JVD
GI: Soft and Non Tender
Musculoskeletal: No Clubbing, No Cyanosis and No Edema
Skin: Warm
Neuro: Awake, Alert, Oriented and No Motor Deficits
Psych: Calm
Assessment / Plan
-
79-year-old male with MRI brain showing right frontoparietal infarction
Right ICA stenosis/ulcerated plaque versus dissection/pseudoaneurysm
Plan:
-Carotid ultrasound
-CTA head & neck
-Continue Plavix and ASA
-Plan for outpatient right CEA on Saturday for with Dr. Das
Data Reviewed
-
Labs: Labs Reviewed by me
--- NOTE | 2024-08-12 13:24 | PTCARENOTE ---
Pt transported off unit for ordered CT.
--- NOTE | 2024-08-12 13:28 | W.PN.HOSP.TC ---
Today's Communication/Plan
-
f/u CTA/Carotid Doppler
Possible d/c after
Assessment / Plan
Assessment / Plan
MRI Brain
Restricted diffusion within the right frontoparietal lobes consistent with acute infarction.
Sequelae of moderate small vessel ischemic disease with prior lacunar infarctions within the right zelaya radiata and thalamus.
MRA neck
Atherosclerotic disease of the right carotid bifurcation with associated moderate/severe stenosis of the proximal ICA and a 0.5 x 0.5 cm posteriorly directed outpouching which likely represents small dissection/pseudoaneurysm.

1. Right parietal temporal area stroke
Status post TNK
-Patient had left upper and some lower extremity weakness yesterday
-Patient was provided dose of TNK in ER based on evaluation
-CT head was negative for any hemorrhagic CVA
-Patient to be maintained on aspirin/Plavix, increased dose of statin to 40 mg daily
-Neurology following and help appreciated
-Clear speech therapy evaluation. PT evaluated and no need as well
2. Right carotid bulb rupture plaque
-MRI questioning half by half centimeter pseudoaneurysm/dissection, vascular surgery evaluated and suspected a ruptured plaque in the area
-Follow-up carotid Doppler/CTA neck has been ordered by vascular surgery
-Patient will likely be requiring an outpatient CEA and tentatively to be done next Saturday per Vasc sx
-Discussed antiplatelet therapy, recommended to be on dual antiplatelet therapy
2. Essential hypertension -uncontrolled
-Resume back patient home dose of lisinopril
-Resume back patient on Cardizem ER 180 mg home dose.
-Hydralazine PRN for SBP > 160
3. History of SVT
-Continue diltiazem at lower dose with slower heart rate
-Will increase to full dose of 180 mg extended release tomorrow if patient able to tolerate current dose without any problems
4, MARITZA on presumed CKD
-Creatinine elevated to 2 at admission, back to 1.2 today.
-Encourage liquid intake
DVT PPX - scd
Full code
Anticipated Discharge: Today
Subjective/Interval History
-
Date of Service: August 12, 2024
LUE/LLE weakness is better
no new issues reported
Objective Data
-
Labs:
Laboratory Results
08/12/24
04:33
WBC 5.0
Hgb 12.3 L
Hct 34.5 L
Plt Count 146
Sodium 142
Potassium 4.3
Chloride 107
Carbon Dioxide 20 L
BUN 26 H
Creatinine 1.2
Glucose 103 H
Calcium 9.5
Vital Signs:
Vital Signs
Temp Pulse Resp BP Pulse Ox
97.6 F 70 12 149/82 98
08/12/24 11:55 08/12/24 09:45 08/12/24 08:15 08/12/24 08:46 08/12/24 08:00
I&O
08/11/24 08/12/24 08/13/24
06:59 06:59 06:59
Intake Total 800 / 800 240 / 240
Output Total 1475 / 1475
Balance -675 / -675 240 / 240
Review of Systems
-
Respiratory: Reports No Symptoms
Cardiac: Reports No Symptoms
Abdomen/GI: Reports No Symptoms
Physical Exam
-
General: No Apparent Distress and Comfortable
HEENT: Negative Oxygen
Respiratory: Clear to Auscultation
Cardiac: Regular Rhythm and S1/S2; Negative Murmur or Rub
GI: Soft, Nontender, Nondistended and Normal Bowel Sounds
Musculoskeletal: No Edema
Neuro: Awake, Alert, Oriented, Nonfocal/Grossly Intact and Other (Left upper motor power 4/5)
Psych: Calm
[2024-08-12] MEDS: CARDIZEM CD 180 MG PO (13:57)
[2024-08-12] MEDS: LOW STRENGTH ASPIRIN 81 MG PO (13:58)
--- NOTE | 2024-08-12 14:07 | W.PN.UPDATE ---
Update Note
Progress Note Update
See my prior note (update note). CT angiogram reviewed. Demonstrates as I suspected ulcerated plaque at the left carotid bulb. Resultant stenosis at the origin of the internal carotid artery. Likely about 60 to 65% stenosis. However there is
soft plaque throughout that vicinity. Most likely the cause of patient's symptoms. Based on this finding, my plan stands as I noted in my prior note. Recommending revascularization with left carotid endarterectomy. Plan as noted in my prior note
as well. See select image below.
--- NOTE | 2024-08-12 15:47 | CM ---
Addendum entered by Tanika Peacock 08/12/24 16:07:
Patient still is not in room down at testing per nursing. Patient provided with another IMM in room. Patient to call family for transportation.
Original Note:
CM attempted to reach patient Main Cline in ICU room, without sucess. Patient completed IMM on 08/10/24 at 23:00 with admissions. Patient plan is for discharge home with no needs. CM will review and confirm with patient.
Plan; home with no needs anticipated.
--- NOTE | 2024-08-16 14:39 | W.DCSUMMARY ---
Discharge Summary
Discharge Data
Date of Admission: 08/11/24
Date of Discharge: 08/12/24
-
Pending Results: No
Hospital Course
Discharging Physician : Dr Henry Gregory
Disposition : Home
Primary care physician : Dr Abdelrahman Burroughs
Principal Discharge diagnosis :
Right temporoparietal lobe stroke requiring thrombolytics
Right carotid bulb ruptured atherosclerotic plaque
Acute kidney injury
Chronic Discharge diagnosis :
History of supraventricular tachycardia
Essential hypertension
Hospital Course :
Patient is a 79-year-old male with no mentioned past medical history came to ER with new onset of left upper and lower extremity weakness. Patient had a CT head in ER ruling out any hemorrhagic CVA. Based on clinical evaluation patient was
provided TNK in ER. Patient was transferred to ICU for further monitoring. Patient had a follow-up MRI brain and MRA head and neck after which MRI brain showed right frontoparietal lobe acute infarction. MRI showing right carotid bifurcation
moderate to severe stenosis with small dissection/pseudoaneurysm. Vascular surgery involved in care and patient had follow-up CTA neck and after evaluation of images this was felt to be more ruptured plaque in right carotid bulb area. Vascular
surgery recommended patient to be maintained on aspirin and Plavix at this point. Patient is planned to be brought back next week for an elective endarterectomy by vascular surgery. Patient cleared physical therapy/speech therapy evaluation did
not have any significant needed discharge.
Patient also had some renal dysfunction at admission which normalized with IV fluid.
Important imaging findings :
CTA Neck: There is mild dilation of the ascending thoracic aorta measuring 4.0 cm. There is predominantly noncalcified plaque of the right carotid bifurcation with associated 50% stenosis by NASCET criteria. There is a 3 x 5 mm mm focal luminal
irregularity along the posterior aspect of the right carotid bifurcation which corresponds with the abnormality seen on same-day MRA and is felt to represent an ulcerative like plaque/nonocclusive focal dissection.
MRI Brain
Restricted diffusion within the right frontoparietal lobes consistent with acute infarction.
Sequelae of moderate small vessel ischemic disease with prior lacunar infarctions within the right zelaya radiata and thalamus.
MRA neck
Atherosclerotic disease of the right carotid bifurcation with associated moderate/severe stenosis of the proximal ICA and a 0.5 x 0.5 cm posteriorly directed outpouching which likely represents small dissection/pseudoaneurysm.
Procedure findings :
None
Discharge Plan
-
Patient Disposition: Home (Routine Discharge)
Discharge Diagnosis/Procedures: Right parieto-temporal CVA, Right carotid bulb ruptured plaque
Condition: Fair
Diet: Low Cholesterol and 2 Gram Sodium
Activity: As tolerated
Driving Restrictions: No driving for 1 week
Bathing Restrictions: OK to Shower
Activity Restrictions/Additional Instructions:
Drink at least 2 liters of water today and tomorrow- you received IV dye during the CT scan today
Dr Das's office will contact you on Friday 08/17 with pre-op instructions
Referrals:
Corina Flores DO [Active] - in four to six weeks (sleep study)
Abdelrahman Burroughs DO [Family Provider] - in one week
Gentry Das MD [Active] -
(Vascular office will call you with more information about your procedure Saturday.
Procedure date 08/19/24 at 7:30. He will be asked to arrive at 6:15 AM)
Prescriptions:
New
atorvastatin 40 mg Tablet
40 mg PO QPM Qty: 30 2RF
clopidogrel 75 mg Tablet
75 mg PO DAILY Qty: 30 2RF
Continued
fluticasone propionate 1 SPRAY spray,suspension
1 spray intranasal DAILYPRN PRN (Reason: ALLERGIES)
latanoprost 0.005 % Drops
1 drp BOTH EYES HS
aspirin 81 mg Tablet,Delayed Release (Dr/Ec)
81 mg PO QPM
ciclopirox 8 % Solution
1 applic TOPICAL HS
lisinopril 5 mg Tablet
5 mg PO DAILY
Align 4 mg Capsule
4 mg PO DAILY
cholecalciferol (vitamin D3) [Vitamin D3] 50 mcg (2,000 unit) Capsule
50 mcg PO DAILY
silodosin 4 mg Capsule
4 mg PO QPM
coQ10 (ubiquinol) 100 mg Capsule
100 mg PO DAILY
[id number]-algal oil [Foltanx RF] 3 mg-35 mg-2 mg -90.314 mg Capsule
1 cap PO BID
sildenafil [Viagra] 100 mg Tablet
100 mg PO DAILY PRN (Reason: ed)
diltiazem HCl 180 mg capsule,extended release 24hr
180 mg PO DAILY
Discontinued
atorvastatin 10 MG tablet
5 mg PO QPM
naproxen sodium [Aleve] 220 mg Tablet
220 mg PO [id number] PRN (Reason: mild pain)
Discharge Orders:
Discharge Patient (As Directed); Ordered 08/12/24
Ordered By: Henry Gregory
Discharge Date and Time
Discharge Date/Time: 08/12/24 17:30
Print Language: GREEK
== END 2024-08-12 17:30 | disposition home or self-care (01) | DRG 62 ==
LOC: ICU 00:30
PROVIDERS: Student in an Organized Health Care Education/Training Program; ADMITTING PHYSICIAN Internal Medicine; ATTENDING PHYSICIAN Hospitalist; CONSULT PHYSICIAN Psychiatry & Neurology Neurology; CONSULT PHYSICIAN Surgery Vascular Surgery; EMERGENCY PHYSICIAN Emergency Medicine; FAMILY PHYSICIAN Family Medicine; OTHER PHYSICIAN Internal Medicine
PROC: 3E03317 Introduction of Other Thrombolytic into Peripheral Vein, Percutaneous Approach (ICD-10-PCS; 2024-08-10)
DX: I65.21 Occlusion and stenosis of right carotid artery (principal); G81.94 Hemiplegia, unspecified affecting left nondominant side; H34.8122 Central retinal vein occlusion, left eye, stable; N17.9 Acute kidney failure, unspecified; I47.19 Other supraventricular tachycardia; I10 Essential (primary) hypertension; D72.819 Decreased white blood cell count, unspecified; E78.00 Pure hypercholesterolemia, unspecified; H54.62 Unqualified visual loss, left eye, normal vision right eye; N40.0 Benign prostatic hyperplasia without lower urinary tract symptoms; D69.6 Thrombocytopenia, unspecified; F32.9 Major depressive disorder, single episode, unspecified; H81.09 Meniere's disease, unspecified ear; E80.4 Gilbert syndrome; G56.03 Carpal tunnel syndrome, bilateral upper limbs; Z82.3 Family history of stroke; Z90.49 Acquired absence of other specified parts of digestive tract; Z79.82 Long term (current) use of aspirin; Z88.0 Allergy status to penicillin
CPT/HCPCS: 70450; 70496; 70498; 70544; 70548; 70551; 71045; 80048; 80053; 80061; 82962; 83036; 84439; 84443; 84484; 85025; 85027; 85576; 85610; 85652; 85730; 92523; 92610; 93005; 93306; 93880; 96374; 97116; 97162; 97165; 99291; A9585; J3101; Q9967

== ENCOUNTER 2024-08-19 06:16 | Inpatient (IN) | payer MEDICARE, SELFPAY ==
[2024-08-19] VITALS (41 sets, daily range): BP systolic 92–136; BP diastolic 49–81; BMI 26.8; BMI 27.2
[2024-08-19 07:01] LABS: Hematocrit 35.8 % (39.0-52.0); Hemoglobin 12.5 g/dL (13.0-18.0); Mean Corp Hgb Conc. 34.9 g/dL (33.0-37.0); Mean Corpuscular Hgb 33.3 pg (27.0-31.0); Mean Corpuscular Volume 95.5 fL (80.0-94.0); Mean Platelet Volume 9.3 fL (7.4-10.4); Platelet Count 136 10^3/uL (130-400); Red Blood Cell Count 3.75 10^6/uL (4.70-6.10); Red Cell Dist. Width 13.2 % (11.5-14.5); White Blood Cell Count 5.5 10^3/uL (4.8-10.8)
[2024-08-19 07:15] LABS: Blood Urea Nitrogen 35 mg/dl (9-20); Calcium 9.7 mg/dl (8.4-10.2); Carbon Dioxide 23 mmol/L (22-30); Chloride 108 mmol/L (98-107); Estimated Creatinine Clearance 43 ml/min; Glucose 100 mg/dl (70-99); Potassium 4.2 mmol/L (3.5-5.1); Sodium 143 mmol/L (135-145); eGFR 51.13
[2024-08-19 07:16] LABS: INR 1.13; PT 14.8 Sec (11.4-14.6)
[2024-08-19 07:17] LABS: APTT 36.3 Sec (23.4-35.0)
[2024-08-19] MEDS: VANCOCIN 200 IV (07:22)
[2024-08-19] MEDS: BACTROBAN NASAL 1 GRAM NASAL (07:27)
[2024-08-19] MEDS: PERIDEX 0.12% ORAL RINSE 15 ML PO (07:27)
--- NOTE | 2024-08-19 09:41 | W.SUR.POST ---
Surgical Immediate Post Op
Note
Pre Op Diagnosis: Carotid stenosis
Post Op Diagnosis: Same
Procedure Performed: Right carotid endarterectomy with bovine pericardial patch angioplasty
Primary Surgeon: Thiago
Assist: Marine CONNOR
Anesthesia: General
Estimated Blood Loss: 20cc
Fluids: See anesthesia flowsheet
Drains/Shunts: None
Specimens/Cultures: Right carotid plaque
Doppler/Duplex/Angio (Y/N): Y
Complications: none
Operative Findings: Woke from anesthesia moving all extremities
--- NOTE | 2024-08-19 09:47 | OR.RPT ---
Operative Report
Operative Report
PROCEDURE DATE: 08/19/2024
Preoperative diagnosis: Symptomatic right carotid artery stenosis.
Postoperative diagnosis: Same
Procedure: Right carotid endarterectomy with bovine pericardial patch angioplasty and intraoperative EEG/SSEP monitoring.
Surgeon: Thiago
Debeaker: LESLEY Hawthorne, required for all aspects of procedure including assistance with traction/countertraction, following a suture line, assistance with closure.
Complications: None
Anesthesia: General
Indications for procedure:
Symptomatic right carotid stenosis with recent right hemispheric CVA (left upper and lower extremity weakness symptoms). Imaging had been somewhat equivocal in terms of degree of stenosis. However the CT angiogram definitely showed at least a
moderate stenosis, and what appeared to be hemorrhagic or soft plaque raising concern as a atheroembolic source. My recommendation was for revascularization expeditiously. Risk/benefit/alternatives of revascularization were discussed. Patient
understood all wished to proceed.
Description of procedure:
Patient was identified brought to the operating room placed on the table in supine position. After the adequate administration of anesthesia and perioperative antibiotics he was prepped and draped in the standard surgical fashion. A standard
preoperative timeout was undertaken and everybody was in agreement the plan. A standard longitudinal incision was made in the right neck that was carried through the skin subcutaneous tissue. Using the electrocautery dissection was carried through
the platysma muscle layer and then alongside the anterior medial border of the sternocleidomastoid muscle. Then using a combination of sharp dissection with the Metzenbaum scissors and electrocautery I dissected along the anterior medial border of
the internal jugular vein. The common facial vein branch was ligated between silk ties and then divided. In addition, there were couple other small venous branches from the jugular that were ligated between silk ties and then divided. I then
deepened my retraction. The common carotid artery was identified and carefully dissected away from the surrounding structures take great care to avoid any injury to the structures. A vessel loop was passed around it which was double looped, but
not yet tightened. Note the vagus nerve was visualized in its usual location posterior lateral to the common carotid artery, and was protected from harm's way. I then continued my dissection up the common carotid artery to the bulb staying only on
the anterior surface of the carotid artery. Then I carried the dissection up to the internal carotid artery and then to the distal internal carotid artery. I identified where it was soft and carefully circumferentially dissected the internal
carotid artery with minimal mobilization and passed a vessel loop around it. Note the hypoglossal nerve was preserved from harm's way. The patient was given an appropriate dose of heparin 8000 units. Next I dissected the anterior surface of the
external carotid artery and superior thyroid branches. These were then carefully circumferentially dissected with minimal mobilization and vessel loops passed around these which were double looped but not yet tightened. After 3 minutes of heparin
circulation time and confirmation of optimization of the blood pressure with my anesthesiology colleagues, I clamped the distal internal carotid artery where it was soft. There was no immediate EEG or SSEP changes. After 1 minute of test clamp
time there was no changes noted. Therefore at this point, the vessel loops on the external carotid artery and superior thyroid branches were tightened and the common carotid artery was clamped where it was soft proximally. An arteriotomy was made
on the common carotid artery with an 11 blade and extended using a Yang scissor. I extended the arteriotomy onto the mid to distal internal carotid artery. At the bulb into the proximal internal carotid artery, there was a clearly ulcerated
plaque with hemorrhagic debris projecting into the lumen. This appeared to be the very likely cause of his recent CVA. Note, there was some backbleeding from the external carotid artery vicinity despite the Vesseloops being tight. I therefore
then dissected back to the origin of the external carotid and superior thyroid branches together and passed a vessel loop around it here, and then I was able to double looped this vessel loop and this controlled the backbleeding. A [place] was then
used to endarterectomized the plaque. An endarterectomy plane was created, and the plaque was then endarterectomized. Distally I feathered the plaque out to a nice clean endpoint in the distal internal carotid artery. Next I endarterectomized the
intima back to normal intima in the common carotid artery, and the intima was cut flush there. I then grasped the plaque and everted plaque out of the origin of the external carotid artery. The plaque was then sent off for specimen. The origin of
the external carotid artery was carefully visualized and any fine debris were removed with fine forceps. Proximal and distal endpoints were then carefully inspected. Any fine debris was removed with fine forceps, and the intima was noted to be
nicely adherent proximally distally. Next any fine debris were removed throughout the endarterectomy bed with fine forceps. Four interrupted 7-0 Prolene tacking sutures were placed to tack the distal endpoint. I then flushed heparinized saline. I
was very satisfied. Then, I used a bovine pericardial patch to sew a patch angioplasty with a running 6-0 Prolene suture. Prior to completing and tying down my suture line, I backbled sequentially each branch and reclamped each branch prior to
unclamping the next branch. I then irrigated with heparinized saline. Then I completed and tied down my suture line. We then restored flow in the common carotid and external carotid arteries. Finally, we released flow in the internal carotid
artery. There was excellent pulsatile flow in all 3 vessels. There was an excellent Doppler signal in the internal carotid artery distal to the patch with a good normal low resistance Doppler signal. There was a good Doppler signal in the
external carotid artery as well. A couple 6-0 Prolene [id number] sutures were placed along any bleeding points along the suture line. Protamine was given to reverse the heparin. Hemostasis was completely achieved. We then irrigated and
confirmed full hemostasis. We then closed in layers with 2-0 Vicryl layer to reapproximate the sternocleidomastoid muscle, followed by 3-0 Vicryl platysma muscle running layer, followed by 4-0 Monocryl subcuticular stitch. Dermabond was applied.
The patient tolerated procedure well. He awoke moving all extremities to command with tongue in the midline.
[2024-08-19 10:14] LABS: Mean Corp Hgb Conc. 35.5 g/dL (33.0-37.0); Mean Corpuscular Hgb 32.7 pg (27.0-31.0); Mean Corpuscular Volume 92.3 fL (80.0-94.0); Mean Platelet Volume 9.5 fL (7.4-10.4); Platelet Count 113 10^3/uL (130-400); Red Blood Cell Count 3.36 10^6/uL (4.70-6.10); Red Cell Dist. Width 13.3 % (11.5-14.5); White Blood Cell Count 7.7 10^3/uL (4.8-10.8)
[2024-08-19 10:20] LABS: INR 1.18; PT 15.5 Sec (11.4-14.6)
[2024-08-19 10:21] LABS: APTT 35.2 Sec (23.4-35.0)
--- NOTE | 2024-08-19 10:25 | CON.INTV ---
Consultation
Consultation Request
Date/Time Consultation Requested: 08/19/2024942
Date/Time Consultation Performed: 08/19/2024 - 1011
Requesting Provider: NIKOLAS Verdin
Performing Provider: Brian Mckee MD
Reason for Consultation: s/p R-CEA
Medical History
-
Chief Complaint: s/p elective HENNY
History of Present Illness:
79-year-old M with PMHx of ED, cervical DDD, CTS, TCP, HTN, BPH, dyslipidemia, Hx of COVID-19 (03/2022) and depression who p/w elective R-CEA. Pt recently hospitalized 08/11 - 08/12/2024 for right frontoparietal lobe ischemic CVA. Head/neck MRA
showed right carotid bifurcation with associated moderate/severe stenosis of the proximal ICS with a 0.5 x 0.5 cm posterioly directed pouch likely representing a small dissection/pseudoaneurysm. Vascular surgery and they recommended
revascularization. He was DC'd home and today underwent right carotid endarterectomy with bovine pericardial patch angioplasty. EBL was 20 cc and he was transferred to the ICU for further care. Court Specialist services consulted for additional
management/recommendations.
When I saw the patient he was resting in bed in no acute distress. Patient's Erin jennings, at bedside and I answered all of her questions. Patient's heart rate is 60, BP via A-line: 157/74, BP via NIBP: 133/73 and saturating 90% on room air. He
denies any complaints, denying chest pain, SOB, CASE, abdominal pain, nausea, fevers or chills.
PMHx: Gilbert's disease, seasonal allergies, erectile dysfunction, bilateral sensorineural hearing loss, leukocytopenia, cervical degenerative disc disease, carpal tunnel syndrome, M�ni�re's disease, diverticulosis, internal + external hemorrhoids,
toe joint osteoarthritis, thrombocytopenia, epididymal cyst, hypertension, right shoulder impingement syndrome, BPH, central retinal vein occlusion (left), dyslipidemia, carotid artery atherosclerosis, personal history of COVID-19 (March 2022),
depression
PSHx: Right ankle surgery, cholecystectomy, vasectomy, right knee arthroscopy, right thumb surgery, left knee partial medial meniscectomy, ERCP with sphincterotomy, left trigger finger, right wrist surgery, aqua ablation of proximal
Past Medical History
Past Medical History: Other (Above as per HPI)
Past Surgical History: Other (Above as per HPI)
Social History
Tobacco: Non-smoker
Alcohol: Occasional
Drug: None
Personal:
Living: With Family
Employment: Retired
Family History
Family History: Other (Father and paternal grandfather CVA)
Allergies / Home Medications
Allergies
Allergy/AdvReac Type Severity Reaction Status Date / Time
valsartan Allergy Unknown Unknown Unverified 08/19/24 07:30
Penicillins Allergy Hives Verified 08/19/24 06:28
Home Medications
�Medication �Instructions �Recorded �Confirmed �Last Taken �Type
fluticasone propionate 50 1 spray intranasal DAILYPRN PRN 08/23/20 08/19/24 08/18/24 08:00 History
mcg/actuation nasal ALLERGIES
spray,suspension
Bifidobacterium infantis 4 mg 4 mg PO DAILY Gastrointestinal 09/21/23 08/19/24 08/18/24 22:00 History
capsule (Align) Issue
aspirin 81 mg tablet,delayed 81 mg PO QPM Blood Clot 09/21/23 08/19/24 08/18/24 22:00 History
release Prevention/Tx
cholecalciferol (vitamin D3) 50 50 mcg PO DAILY Supplement 09/21/23 08/19/24 08/18/24 08:00 History
mcg (2,000 unit) capsule (Vitamin
D3)
ciclopirox 8 % topical solution 1 applic topical HS Infection 09/21/23 08/19/24 08/16/24 22:00 History
coQ10 (ubiquinol) 100 mg capsule 200 mg PO DAILY Supplement 09/21/23 08/17/24 08/10/24 History
latanoprost 0.005 % eye drops 1 drp BOTH EYES HS Eye Condition 09/21/23 08/19/24 08/18/24 22:00 History
lisinopril 5 mg tablet 5 mg PO DAILY Blood Pressure 09/21/23 08/19/24 08/18/24 22:00 History
sildenafil 100 mg tablet (Viagra) 100 mg PO DAILY PRN ed 09/21/23 08/19/24 07/17/24 08:00 History
silodosin 4 mg capsule 4 mg PO QPM Urinary Issue 09/21/23 08/19/24 08/18/24 22:00 History
diltiazem HCl 180 mg 180 mg PO DAILY Heart 08/10/24 08/19/24 08/19/24 05:00 History
capsule,extended release 24 hr Disease/Condition
atorvastatin 40 mg tablet 40 mg PO QPM HLD #30 tabs 08/12/24 08/19/24 08/18/24 22:00 Rx
clopidogrel 75 mg tablet 75 mg PO DAILY #30 tabs 08/12/24 08/19/24 08/19/24 05:00 Rx
aflibercept 2 mg/0.05 mL 2 mg intravitreal ONCE Eye 08/17/24 08/17/24 08/18/24 22:00 History
intravitreal solution for Condition
injection (Eylea)
biotin 1 mg tablet 2,500 mcg PO DAILY Supplement 08/17/24 08/19/24 08/18/24 22:00 History
sodium chloride 0.65 % nasal spray 1 spray intranasal DAILY Allergies 08/17/24 08/19/24 08/19/24 05:00 History
aerosol (Saline Nasal)
Review of Systems
-
History Source: Patient
All other systems: Negative unless noted
Vitals / Labs / Diagnostic Testing
Vital Signs
Temp Pulse Resp BP Pulse Ox
97.8 F 59 8 136/66 100
08/19/24 12:08 08/19/24 13:00 08/19/24 13:00 08/19/24 13:00 08/19/24 13:00
Lab Data
08/19/24 09:58
08/19/24 09:58
Laboratory Results
08/19/24 08/19/24
06:51 09:58
PT 14.8 H 15.5 H
INR 1.13 1.18
APTT 36.3 H 35.2 H
Diagnostic Testing:
Physical Exam
-
HEENT: Normocephalic and Anicteric
Cardiovascular: S1/S2 and Peripheral Edema (negative)
Respiratory: Clear, Wheeze (negative), Rales (negative), Rhonchi (negative) and Non-Labored Respirations
GI: Soft, Non Distended, Non Tender and Normal Bowel Sounds
Neurology: AO x 3 and Tremors (negative)
Skin: Warm and Dry
General: Respiratory Distress (negative), Comfortable, Fever (negative) and Chills (negative)
Assessment
-
Assessment: 79-year-old M with PMHx of ED, cervical DDD, CTS, TCP, HTN, BPH, dyslipidemia, Hx of COVID-19 (03/2022) and depression who p/w elective R-CEA. Pt recently hospitalized 08/11 - 08/12/2024 for right frontoparietal lobe ischemic CVA.
Head/neck MRA showed right carotid bifurcation with associated moderate/severe stenosis of the proximal ICS with a 0.5 x 0.5 cm posterioly directed pouch likely representing a small dissection/pseudoaneurysm. Vascular surgery and they recommended
revascularization. He was DC'd home and today underwent right carotid endarterectomy with bovine pericardial patch angioplasty. EBL was 20 cc and he was transferred to the ICU for further care. Court Specialist services consulted for additional
management/recommendations.
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
external hemorrhoids, toe joint osteoarthritis, thrombocytopenia, epididymal cyst, hypertension, right shoulder impingement syndrome, BPH, central retinal vein occlusion (left), dyslipidemia, carotid artery atherosclerosis, personal history of
COVID-19 (March 2022), depression
Impression:
#Symptomatic right carotid artery stenosis s/p right carotid endarterectomy with bovine pericardial patch angioplasty and intraoperative EEG/SSEP monitoring (POD #0)
#Chronic anemia
#Chronic thrombocytopenia
#MARITZA
#History of dyslipidemia
#History of ED
#History of cervical DDD
#BPH
#History of central retinal vein occlusion (left)
#Personal history of COVID-19 (03/2022)
#History of depression
Plan:
Postoperative surgical intensive care unit monitoring
Supplemental oxygen as needed to maintain SpO2 >90-94%
prn nebulized bronchodilators - not currently bronchospastic
Incentive spirometry encouraged 10x per hour for at least 4 hrs a day
Aspiration precautions
Pain control
Neuro and vascular checks per protocol
Maintain MAP>65
Replete electrolytes with K>4, Mg>2
Maintain euglycemia with goal BG 140-180
Vascular surgery following-correspondence and operative notes reviewed
Transfuse blood products as needed to keep Hb>7g/dL, and plt>50k (given post-operative status)
Continue with DAPT with aspirin + Plavix and high intensity statin
Continue with home anti-hypertensives
DVT prophylaxis
Early nutrition
Early mobilization
Critical care statement: A total of 41 minutes of critical care time was provided for this patient today. This includes management of unstable vital signs, evaluation of the patient at bedside, reviewing the patient's pertinent medical records
including radiographs, microbiology, laboratory evaluations, and discussion with primary team, consultants, pharmacy, nutrition, physical therapy, case management, charge nurse, critical care nursing, and respiratory therapy.
[2024-08-19 10:29] LABS: Blood Urea Nitrogen 29 mg/dl (9-20); Calcium 8.6 mg/dl (8.4-10.2); Carbon Dioxide 20 mmol/L (22-30); Chloride 109 mmol/L (98-107); Estimated Creatinine Clearance 51 ml/min; Glucose 133 mg/dl (70-99); Potassium 4.2 mmol/L (3.5-5.1); Sodium 140 mmol/L (135-145); eGFR > 60.00
[2024-08-19] MEDS: NEO-SYNEPHRINE 250 IV (10:30)
[2024-08-19] MEDS: DILAUDID 0.25 MG IV (11:01)
--- NOTE | 2024-08-19 12:27 | PTCARENOTE ---
12:00 new admission from PACU pt S/P RT Endosecretory . Morgan at 40/12cc via left FA. NSS at 80/hr RT radial A/line zero per protocol. BP via A/line 140/58 MAP 88; via left upper arm 132/62 MAP 82;
AAO x3 Neuro check WNL
SB 57 to 59 while pt awake no edema pedal pulses present
Abdomen soft non tender BS present
Have not voided post surgery
Left peripheral line DL ; RT fA capped
Lungs diminsed RR 12 2L 100 percent
RT neck incision [employer] no swelling mild ecchymosis noted ice pack applied pain 2/10 pain scale level
call rosa within reach
[2024-08-19] MEDS: NSS 1000 IV ×2 (13:49→23:21)
[2024-08-19] MEDS: ROXICODONE 5 MG PO (14:19)
[2024-08-19] MEDS: LIPITOR 40 MG PO (17:00)
[2024-08-19] MEDS: HEPARIN 5000 UNITS SC ×2 (17:00→23:20)
[2024-08-19] MEDS: ASPIR LOW (ENTERIC COATED) 81 MG PO (17:00)
[2024-08-19] MEDS: FLOMAX 0.4 MG PO (17:00)
--- NOTE | 2024-08-19 17:19 | PTCARENOTE ---
Pt reassessed. PT without void. Straight cath had been performed for 1200ml straw colored urine with sediment. Morgan-synephrine weaned to off @ 16:41 after maintaining goal. Surgical site C/D/I.
--- NOTE | 2024-08-19 20:00 | PTCARENOTE ---
Resumed care of pt this evening. Received pt A&Ox3, can move all 4 extremities, and can make needs known. Neurological checks unchanged. Pt is NSR on tele monitor, has no edema, and + bilateral pedal pulses. Pt is on 2L of O2 satting at 96% pulse
ox. On auscultation pt lungs sound clear. Pt's abdomen is round w/ active BS. Pt's right neck surgical site is closed w/ surgical glue, appears well approximated, and is C/D/I.
[2024-08-19] MEDS: XALATAN OPHTHALMIC SOLUTION 1 DROP BOTH EYES (20:41)
[2024-08-19] MEDS: OCEAN, SALINE MIST 1 SPRAYS NASAL (20:42)
[2024-08-20] VITALS (15 sets, daily range): BP systolic 99–119; BP diastolic 52–70
--- NOTE | 2024-08-20 | PTCARENOTE ---
Upon reassessment neurological function remains unchanged. Surgical site intact.
[2024-08-20 04:15] LABS: Hematocrit 27.8 % (39.0-52.0); Hemoglobin 9.9 g/dL (13.0-18.0); Mean Corp Hgb Conc. 35.6 g/dL (33.0-37.0); Mean Corpuscular Hgb 33.8 pg (27.0-31.0); Mean Corpuscular Volume 94.9 fL (80.0-94.0); Mean Platelet Volume 9.8 fL (7.4-10.4); Platelet Count 105 10^3/uL (130-400); Red Blood Cell Count 2.93 10^6/uL (4.70-6.10); Red Cell Dist. Width 13.2 % (11.5-14.5); White Blood Cell Count 7.6 10^3/uL (4.8-10.8)
[2024-08-20 04:18] LABS: INR 1.21; PT 15.8 Sec (11.4-14.6)
[2024-08-20 04:19] LABS: APTT 37.4 Sec (23.4-35.0)
[2024-08-20 04:29] LABS: Blood Urea Nitrogen 35 mg/dl (9-20); Calcium 8.6 mg/dl (8.4-10.2); Carbon Dioxide 19 mmol/L (22-30); Chloride 110 mmol/L (98-107); Estimated Creatinine Clearance 51 ml/min; Glucose 154 mg/dl (70-99); Potassium 4.2 mmol/L (3.5-5.1); Sodium 141 mmol/L (135-145); eGFR > 60.00
--- NOTE | 2024-08-20 07:00 | PTCARENOTE ---
Received pt in bed. He is awake and alert. Denies any incisional pain or neurological symptoms that he experienced prior to admission. IVF via left fa , right radial arterial line transduced & correlating to left upper arm cuff pressure. Good
peripheral pulses, +1 right ankle edema , trace left ankle edema. Lungs CTA, RA pulse ox 98%. +BSX4. He has a good appetite. He was informed of the plan of care to removed the arterial line and to cap IVF and ambulate. Safe environment maintained.
He was also informed of the S/S of a stroke and the importance of medical compliance. He verbalized his understanding.
--- NOTE | 2024-08-20 07:51 | W.PN.VS ---
Addendum entered and electronically signed by Gentry Das MD 08/20/24 13:45:
Seen and examined earlier this a.m. with BANQUET PILOT Clark. Agree with findings as noted below. Right neck incision was clean dry and intact. No hematoma. Neurologically stable. No focal deficits. Moves all extremities well, tongue midline. Plan/as
discussed and noted below.
Original Note:
Today's Communication / Plan
-
Patient seen and examined at bedside with Dr. Gentry Das, below plan reviewed with attending.
Assessment/Plan
-
Assessment: 79 year old male POD#1 Right CEA
Plan:
Discontinue arterial line
Discontinue Wilson catheter
Discontinue IV fluids
Continue I&O
OOB to chair with progression to ambulation
Possible discharge to home pending spontaneous void
Subjective Data
-
Date of Service: August 20, 2024
Patient seen and examined at bedside, offers no complaints. Denies nausea, vomiting, fever, chills, and headache. Does endorse difficulty urinating as he cannot urinate while in bed. Reports eagerness for discharge to home.
Objective Data
-
Vital Signs
Temp Pulse Resp BP Pulse Ox
98.6 F 47 13 112/55 100
08/20/24 03:28 08/20/24 07:30 08/20/24 07:30 08/20/24 07:00 08/20/24 07:30
Intake and Output
08/19/24 08/20/24 08/21/24
06:59 06:59 06:59
Intake Total 1660 / 1660
Output Total 3250 / 3250
Balance -1590 / -1590
Intake:
Oral fluids 100 / 100
IV fluids (Total) 1560 / 1560
IVF 1360 / 1360
Normosol 200 / 200
IV piggybacks 0 / 0
Output:
Urine, Wilson 1200 / 1200
Straight cath output 2049
Lab Results
08/20/24 03:42
08/20/24 03:42
Calcium 8.6 mg/dl (8.4-10.2) 08/20/24 03:42
Physical Exam
-
AAOx3, NAD
Right neck CDI, no evidence of hematoma, exofin glue CDI, tongue midline, face symmetrical
No tachycardia
No dyspnea
ABD non-tender, non-distended
BL LE and UE with equal strength and movement
[2024-08-20] MEDS: HEPARIN 5000 UNITS SC (08:25)
[2024-08-20] MEDS: PLAVIX 75 MG PO (08:25)
[2024-08-20] MEDS: OCEAN, SALINE MIST 1 SPRAYS NASAL (08:25)
--- NOTE | 2024-08-20 08:25 | PTCARENOTE ---
SBP 95. Pt ordered Lisinopril & Diltiazem. Will cycle another BP and reevaluate. Pt is aware of the plan.
--- NOTE | 2024-08-20 08:28 | W.PN.INTV ---
Today's Communication / Plan
Recommendations
Up OOB as tolerated
Pain control
Encourage symptoms primary
Outpatient follow-up with vascular surgery
Patient is being prepared for discharge home. No additional recommendations at this time - Volunteer Assistant/Pulmonary service will now sign off. Please reconsult if there are any additional questions/concerns, or if patient's respiratory status
deteriorates.
Assessment
-
Assessment: 79-year-old M with PMHx of ED, cervical DDD, CTS, TCP, HTN, BPH, dyslipidemia, Hx of COVID-19 (03/2022) and depression who p/w elective R-CEA. Pt recently hospitalized 08/11 - 08/12/2024 for right frontoparietal lobe ischemic CVA.
Head/neck MRA showed right carotid bifurcation with associated moderate/severe stenosis of the proximal ICS with a 0.5 x 0.5 cm posterioly directed pouch likely representing a small dissection/pseudoaneurysm. Vascular surgery and they recommended
revascularization. He was DC'd home and today underwent right carotid endarterectomy with bovine pericardial patch angioplasty. EBL was 20 cc and he was transferred to the ICU for further care. Volunteer Assistant services consulted for additional
management/recommendations.
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
external hemorrhoids, toe joint osteoarthritis, thrombocytopenia, epididymal cyst, hypertension, right shoulder impingement syndrome, BPH, central retinal vein occlusion (left), dyslipidemia, carotid artery atherosclerosis, personal history of
COVID-19 (March 2022), depression
Impression:
#Symptomatic right carotid artery stenosis s/p right carotid endarterectomy with bovine pericardial patch angioplasty and intraoperative EEG/SSEP monitoring (POD #1)
#Acute on chronic anemia
#Chronic thrombocytopenia
#MARITZA
#History of dyslipidemia
#History of ED
#History of cervical DDD
#BPH
#History of central retinal vein occlusion (left)
#Personal history of COVID-19 (03/2022)
#History of depression
Plan:
Postoperative surgical intensive care unit monitoring
Supplemental oxygen as needed to maintain SpO2 >90-94%
prn nebulized bronchodilators - not currently bronchospastic
Incentive spirometry encouraged 10x per hour for at least 4 hrs a day
Aspiration precautions
Pain control
Neuro and vascular checks per protocol
Maintain MAP>65
Replete electrolytes with K>4, Mg>2
Maintain euglycemia with goal BG 140-180
Vascular surgery following-correspondence and operative notes reviewed
Transfuse blood products as needed to keep Hb>7g/dL, and plt>50k (given post-operative status)
Continue with DAPT with aspirin + Plavix and high intensity statin
Continue with home anti-hypertensives
DVT prophylaxis
Early nutrition
Early mobilization
Patient is being prepared for discharge home. No additional recommendations at this time. Volunteer Assistant/Pulmonary service will now sign off. Thank you for allowing us to be involved in the care of this patient. Please reconsult if there are any
additional questions/concerns, or if patient's respiratory status deteriorates.
Total time spent today was 43 minutes for this encounter. Time includes reviewing laboratory test/imaging results, reviewing pertinent medical records, obtaining and reviewing medical history, performing an appropriate exam, ordering medications,
tests and procedures. Time also includes documentation of this encounter, coordinating patient care and communicating with other healthcare professionals. Total time does not include separately billed tests performed on this date of service.
Subjective Dataa
Subjective Data
Date of Service:
Date of Service: August 20, 2024
Chief Complaint: Volunteer Assistant Follow Up
Subjective:
Patient was seen and evaluated this morning. Currently heart rate is 56, BP 105/55 and saturating 99% on RA. He is sitting in a chair in NAD. Son is at bedside. Pt feels well, no neck pain.
Review of Systems
General: Other (Negative unless mentioned above)
Objective Data
Data Reviewed
Vital Signs / I&O / Oxygen:
Vital Signs
Temp Pulse Resp BP Pulse Ox
97.7 F 56 15 119/70 98
08/20/24 08:02 08/20/24 09:15 08/20/24 09:15 08/20/24 09:00 08/20/24 09:15
Intake and Output
08/19/24 08/20/24 08/21/24
06:59 06:59 06:59
Intake Total 1660 / 1740 380 / 380
Output Total 3250 / 3250
Balance -1590 / -1510 380 / 380
SaO2 98
Nasal Cannula flow liters per 2
minute
Physical Exam
General: Respiratory Distress (negative), Comfortable, Chills (negative) and Sweats (negative)
HEENT: Normocephalic, Anicteric and Moist Mucous Membranes
Cardiovascular: S1-S2, Murmur (negative) and Peripheral Edema (negative)
Respiratory: Clear, Wheeze (negative), Crackles (negative), Rhonchi (negative) and Non-Labored Respirations
GI: Soft, Non Distended, Non Tender and Normal Bowel Sounds
Neurology: AO x 3 and Tremors (negative)
Skin: Warm, Dry, Cyanosis (negative) and Jaundice (negative)
Labs/Micro/Reports
Lab Data
08/20/24 03:42
08/20/24 03:42
Laboratory Results
08/19/24 08/20/24
09:58 03:42
PT 15.5 H 15.8 H
INR 1.18 1.21
APTT 35.2 H 37.4 H
--- NOTE | 2024-08-20 10:11 | PTCARENOTE ---
Pt informed em that he takes Lisinopril 30 minutes after his dinner at night. Per Tianna CONNOR ok to administer just the Diltiazem now. Pt is aware of the plan of care. Right radial dressing CDI. Informed him of keeping his hands off of his
incision unless he washed his hands prior, to keep the direct spray of the water off of his neck while in the shower, to call Dr. Das if and pain or swelling from his neck worsens, or if there is redness, drainage, swelling along his incision line,
fever or chills. He verbalized his understanding. His sn was present in the room while instructions provided. Safe environment maintained.
[2024-08-20] MEDS: CARDIZEM CD 180 MG PO (10:12)
--- NOTE | 2024-08-20 10:31 | PTCARENOTE ---
Tolerated ambulating on the unit.
--- NOTE | 2024-08-20 10:36 | CM ---
Addendum entered by Genevieve Richards RN 08/20/24 13:49:
Wilson dc . DTV Pt has hx of self cath . Pt has self cath at home. Son dgt and girlfriend aware of dc.Pt and gf [id number] [facility] Lidia S Liaison aware.
PLAN Home with [facility]
Original Note:
Alert awake oriented patient who had CVA 2 weeks ago . He is in ICU.He had vascular procedure yesterday . He lives with his ficeleste Khan who lives in a 2 story town home with 12 step to enter and 14 steps to bed and bathroom. He is independent in
driving and in all activities of daily living.He has a walker and cane if needed.spoke with daughter Kellen. He also has supportive son visiting form [place].Steve removed DTV,
No VN hx / No SNF history
Pharmacy [facility]
PCP DR Burroughs
PLAN Possible Dc to home today if able to void.
--- NOTE | 2024-08-20 10:44 | PTCARENOTE ---
0933 TT'd Tianna CONNOR regarding his BP earlier, clarifying medication administration for current BP 119/70, HR 50's. Will administer medications as ordered.
--- NOTE | 2024-08-20 10:50 | PTCARENOTE ---
HR 150's while standing in the bathroom at the sink. He is asymptomatic. While he was walking back to the chair his heart rate returned to SR 69-70. BP unchanged. Tianna CONNOR notified via TT and photo of rhythm strip sent. Will continue to
monitor. Pt is aware of the plan.
--- NOTE | 2024-08-20 13:40 | PTCARENOTE ---
IV's and telemetry removed, discharge instructions read aloud. Stroke packet in his possession. Reinforced s/s stroke, infection and what to do in the event of s/s of stroke. He and his significant other verbalized their understanding. Escorted via
w/c to private vehicle.
--- NOTE | 2024-08-20 14:27 | VNURNOTE ---
Called contact Erin to review [facility]. No answer, left message. [facility]
== END 2024-08-20 14:07 | disposition home health service (06) | DRG 38 ==
LOC: ICU 06:16
PROVIDERS: Nurse Practitioner Acute Care; ADMITTING PHYSICIAN Surgery Vascular Surgery; CONSULT PHYSICIAN Internal Medicine Critical Care Medicine; FAMILY PHYSICIAN Family Medicine
PROC: 03CK0ZZ Extirpation of Matter from Right Internal Carotid Artery, Open Approach (ICD-10-PCS; 2024-08-19)
PROC: 03UK0KZ Supplement Right Internal Carotid Artery with Nonautologous Tissue Substitute, Open Approach (ICD-10-PCS; 2024-08-19)
DX: I65.21 Occlusion and stenosis of right carotid artery (principal); N17.9 Acute kidney failure, unspecified; I10 Essential (primary) hypertension; F32.A Depression, unspecified; N40.0 Benign prostatic hyperplasia without lower urinary tract symptoms; M19.90 Unspecified osteoarthritis, unspecified site; J30.2 Other seasonal allergic rhinitis; D64.9 Anemia, unspecified; D69.6 Thrombocytopenia, unspecified; E80.4 Gilbert syndrome; D72.819 Decreased white blood cell count, unspecified; Z86.73 Personal history of transient ischemic attack (TIA), and cerebral infarction without residual deficits; Z86.16 Personal history of COVID-19; Z82.3 Family history of stroke; Z88.0 Allergy status to penicillin; Z79.82 Long term (current) use of aspirin; Z79.02 Long term (current) use of antithrombotics/antiplatelets
CPT/HCPCS: 88304; 88311; 35301; 80048; 85027; 85610; 85730; 86850; 86900; 86901; 95938; 95941; 95955

== ENCOUNTER → 2024-10-01 11:18 | Outpatient (REF) | payer MEDICARE, SELFPAY | LOC: RAD 11:18 | PROVIDERS: ATTENDING PHYSICIAN Physician Assistant; FAMILY PHYSICIAN Family Medicine | DX: I65.21 Occlusion and stenosis of right carotid artery (principal) | CPT/HCPCS: 93880 ==

== ENCOUNTER → 2024-10-23 12:40 | Outpatient (REF) | payer MEDICARE, SELFPAY ==
[2024-10-23 13:41] LABS: % Basophils 0.7 % (0-2); % Eosinophils 1.7 % (0-6); % Immature Granulocytes 0.2 % (0-0.5); % Lymphocytes 16.1 % (20.5-51.1); % Monocytes 8.9 % (1.7-9.3); % Neutrophils 72.4 % (42.2-75.2); Absolute Eosinophils 0.1 10^3/uL (0-0.7); Absolute Lymphocytes 0.7 10^3/uL (1.2-3.4); Absolute Monocytes 0.4 10^3/uL (0.1-0.6); Hematocrit 34.5 % (39.0-52.0); Hemoglobin 12.2 g/dL (13.0-18.0); Mean Corp Hgb Conc. 35.4 g/dL (33.0-37.0); Mean Corpuscular Volume 93.2 fL (80.0-94.0); Mean Platelet Volume 9.6 fL (7.4-10.4); Nucleated Red Blood Cells % 0 % (-); Platelet Count 125 10^3/uL (130-400); Red Cell Dist. Width 12.8 % (11.5-14.5); White Blood Cell Count 4.2 10^3/uL (4.8-10.8)
[2024-10-23 14:24] LABS: Blood Urea Nitrogen 24 mg/dl (9-20); Calcium 9.8 mg/dl (8.4-10.2); Carbon Dioxide 27 mmol/L (22-30); Chloride 104 mmol/L (98-107); Glucose 91 mg/dl (70-99); Potassium 4.3 mmol/L (3.5-5.1); Sodium 139 mmol/L (135-145); eGFR 51.13
== END ==
LOC: REG 12:40
PROVIDERS: ATTENDING PHYSICIAN Urology; FAMILY PHYSICIAN Family Medicine
DX: N40.0 Benign prostatic hyperplasia without lower urinary tract symptoms (principal); R33.9 Retention of urine, unspecified
CPT/HCPCS: 36415; 80048; 84153; 84154; 85025

== ENCOUNTER → 2024-12-16 14:32 | Outpatient (REF) | payer MEDICARE, SELFPAY | LOC: DHSLP 14:32 | PROVIDERS: ATTENDING PHYSICIAN Internal Medicine; FAMILY PHYSICIAN Family Medicine | DX: G47.33 Obstructive sleep apnea (adult) (pediatric) (principal); R09.02 Hypoxemia | CPT/HCPCS: 95800 ==

== ENCOUNTER → 2025-03-09 08:00 | Outpatient (REF) | payer MEDICARE, SELFPAY ==
[2025-03-09 13:34] LABS: Blood Urea Nitrogen 32 mg/dl (9-20); Calcium 9.5 mg/dl (8.4-10.2); Carbon Dioxide 23 mmol/L (22-30); Chloride 112 mmol/L (98-107); Glucose 91 mg/dl (70-99); Sodium 141 mmol/L (135-145); eGFR 55.88
== END ==
LOC: HWLAB 08:00
PROVIDERS: ATTENDING PHYSICIAN Internal Medicine; FAMILY PHYSICIAN Family Medicine
DX: I10 Essential (primary) hypertension (principal)
CPT/HCPCS: 36415; 80048

== ENCOUNTER → 2025-03-15 08:51 | Outpatient (REF) | payer MEDICARE, SELFPAY ==
[2025-03-15 11:33] LABS: % Basophils 0.9 % (0-2); % Eosinophils 1.7 % (0-6); % Immature Granulocytes 0.6 % (0-0.5); % Lymphocytes 15.7 % (20.5-51.1); % Monocytes 9.7 % (1.7-9.3); % Neutrophils 71.4 % (42.2-75.2); Absolute Eosinophils 0.1 10^3/uL (0-0.7); Absolute Lymphocytes 0.6 10^3/uL (1.2-3.4); Absolute Monocytes 0.3 10^3/uL (0.1-0.6); Absolute Neutrophils 2.5 10^3/uL (1.4-6.5); Hematocrit 33.9 % (39.0-52.0); Hemoglobin 11.8 g/dL (13.0-18.0); Mean Corp Hgb Conc. 34.8 g/dL (33.0-37.0); Mean Corpuscular Volume 94.7 fL (80.0-94.0); Mean Platelet Volume 9.8 fL (7.4-10.4); Nucleated Red Blood Cells % 0 % (-); Platelet Count 106 10^3/uL (130-400); Red Blood Cell Count 3.58 10^6/uL (4.70-6.10); Red Cell Dist. Width 13.2 % (11.5-14.5); White Blood Cell Count 3.5 10^3/uL (4.8-10.8)
[2025-03-15 12:11] LABS: ALT (SGPT) 26 U/L (0-50); AST (SGOT) 31 U/L (17-59); Albumin 4.5 g/dl (3.5-5.0); Alkaline Phosphatase 44 U/L (38-126); Blood Urea Nitrogen 26 mg/dl (9-20); Calcium 9.7 mg/dl (8.4-10.2); Carbon Dioxide 23 mmol/L (22-30); Chloride 111 mmol/L (98-107); Glucose 101 mg/dl (70-99); HDL Cholesterol 64 mg/dl; LDL Cholesterol, Calculated 41 mg/dl; Potassium 4.1 mmol/L (3.5-5.1); Sodium 142 mmol/L (135-145); Total Bilirubin 1.5 mg/dl (0.2-1.3); Total Cholesterol 118 mg/dl (50-199); Triglyceride 65 mg/dl (10-149); Very Low Density Lipoprotein 13 mg/dl (0-30); eGFR > 60.00
== END ==
LOC: HWLAB 08:51
PROVIDERS: ATTENDING PHYSICIAN Family Medicine
DX: D61.818 Other pancytopenia (principal); E78.5 Hyperlipidemia, unspecified
CPT/HCPCS: 36415; 80053; 80061; 85025

== ENCOUNTER → 2025-03-16 08:45 | Outpatient (REF) | payer MEDICARE, SELFPAY | LOC: RAD 08:45 | PROVIDERS: ATTENDING PHYSICIAN Internal Medicine; FAMILY PHYSICIAN Family Medicine | DX: I77.810 Thoracic aortic ectasia (principal) | CPT/HCPCS: 71275; Q9967 ==

== ENCOUNTER → 2025-04-26 13:57 | Outpatient (REF) | payer MEDICARE, SELFPAY | LOC: RAD 13:57 | PROVIDERS: ATTENDING PHYSICIAN Surgery Vascular Surgery; FAMILY PHYSICIAN Family Medicine | DX: I65.29 Occlusion and stenosis of unspecified carotid artery (principal); G81.94 Hemiplegia, unspecified affecting left nondominant side | CPT/HCPCS: 93880 ==

== ENCOUNTER → 2025-07-22 09:29 | Outpatient (REF) | payer MEDICARE, SELFPAY ==
[2025-07-22 11:54] LABS: Hematocrit 35.4 % (39.0-52.0); Hemoglobin 12.2 g/dL (13.0-18.0); Mean Corp Hgb Conc. 34.5 g/dL (33.0-37.0); Mean Corpuscular Volume 97.5 fL (80.0-94.0); Nucleated Red Blood Cells % 0 % (-); Platelet Count 132 10^3/uL (130-400); Red Cell Dist. Width 13.0 % (11.5-14.5)
[2025-07-22 13:05] LABS: ALT (SGPT) 19 U/L (0-50); AST (SGOT) 27 U/L (17-59); Albumin 4.5 g/dl (3.5-5.0); Alkaline Phosphatase 45 U/L (38-126); Blood Urea Nitrogen 25 mg/dl (9-20); Calcium 9.2 mg/dl (8.4-10.2); Carbon Dioxide 25 mmol/L (22-30); Chloride 108 mmol/L (98-107); Glucose 107 mg/dl (70-99); HDL Cholesterol 57 mg/dl; LDL Cholesterol, Calculated 53 mg/dl; Potassium 4.3 mmol/L (3.5-5.1); Sodium 140 mmol/L (135-145); Total Protein 6.9 g/dl (6.3-8.2); Very Low Density Lipoprotein 12 mg/dl (0-30); eGFR 55.53
== END ==
LOC: HWLAB 09:29
PROVIDERS: ATTENDING PHYSICIAN Family Medicine
DX: D61.818 Other pancytopenia (principal); E78.5 Hyperlipidemia, unspecified
CPT/HCPCS: 36415; 80053; 80061; 85025